=== PATIENT | female | born 1935 | race Two or more races ===

== ENCOUNTER 2020-01-03 12:28 | Inpatient (IN) | payer MEDICARE ==
--- NOTE | 2020-01-03 12:54 | ER Document Report ---
ED Medical Screen (RME) - General Chief Complaint: Neck Swelling Stated Complaint: ABSCESS Time Seen by Provider: 01/03/20 12:41 - HPI Notes: 01/03/20 12:49 84-year-old female without history of any medical complaints presents to the emergency room with right facial and right neck swelling mass for the last 2 days as well as having bilateral chest pain that started a day ago. Reports chest pain is episodic, only last for a few minutes and then goes away. Denies any traveling of pain to her arm shoulder back. Denies any dental pain dental complaints. Patient does not take any grcd-nkx-aktshjv medications, denies any medical history and does not have a primary care provider. In triage her heart rate was 138, afebrile. Denies any history of tachycardia. Does not drink alcohol, smoke, drink caffeine. Denies any thyroid disorders. Denies any numbness or tingling down arms or legs. Denies any shortness of breath, nausea, vomiting, diarrhea, abdominal pain. Denies any blurred vision, double vision, loss of vision. No trauma. Denies headaches I have greeted and performed a rapid initial assessment of this patient. A comprehensive ED assessment and evaluation of the patient, analysis of test results and completion of the medical decision making process will be conducted by additional ED providers. PHYSICAL EXAMINATION: GENERAL: Acutely ill, malnourished and in no acute distress. HEAD: Atraumatic, normocephalic. ENT: Slight trismus on the right. No gingival swelling or erythema on right EYES: Pupils equal round extraocular movements intact, conjunctiva are normal. NECK: Normal range of motion. Right mandible with swelling, tenderness to palpation, no erythema. right submandibular with moderate amount of swelling CV: tachycardia LUNGS: No respiratory distress - Related Data Allergies/Adverse Reactions: No Known Allergies Allergy (Verified 06/09/13 06:49) Past Medical History - Social History Chew tobacco use (# tins/day): No Frequency of alcohol use: None Drug Abuse: None Pulmonary Medical History: Denies: Hx Tuberculosis Neurological Medical History: Denies: Hx Seizures Endocrine Medical History: Comment Only: Hx Graves' Disease - unknown, Hx Hyperthyroidism - unknown, Hx Hypothyroidism - unknown Musculoskeltal Medical History: Comment Only Hx Systemic Lupus Erythematosus - unknown Psychiatric Medical History: Comment Only: Hx Bipolar Disorder - unknown, Hx Depression - unknown, Hx Post Traumatic Stress Disorder - unknown, Hx Schizophrenia - unknown Past Surgical History: Reports: Hx Bowel Surgery, Hx Hysterectomy. Denies: Hx Appendectomy, Hx Coronary Artery Bypass Graft, Hx Pacemaker, Hx Tonsillectomy - Immunizations Hx Diphtheria, Pertussis, Tetanus Vaccination: Yes Physical Exam - Vital signs Vitals: Temp Pulse Resp BP Pulse Ox 98.5 F 137 H 16 144/84 H 95 01/03/20 12:33 01/03/20 12:33 01/03/20 12:33 01/03/20 12:33 01/03/20 12:33 Course - Vital Signs Vital signs: Temp Pulse Resp BP Pulse Ox 97.8 F 137 H 16 144/84 H 95 01/03/20 12:44 01/03/20 12:33 01/03/20 12:33 01/03/20 12:33 01/03/20 12:33
[2020-01-03 13:18] LABS: HEMATOCRIT 41.3 % (36.0-47.0); HEMOGLOBIN 14.4 g/dL (12.0-15.5); MEAN CORPUSCULAR HEMOGLOBIN 32.6 pg (27.0-33.4); MEAN CORPUSCULAR HGB CONC 34.9 g/dL (32.0-36.0); MEAN CORPUSCULAR VOLUME 93 fl (80-97); RED BLOOD COUNT 4.43 10^6/uL (3.72-5.28); RED CELL DISTRIBUTION WIDTH 12.9 % (11.5-14.0)
[2020-01-03 13:40] LABS: ABSOLUTE LYMPHOCYTES# (MANUAL) 0.2 10^3/uL (0.5-4.7); ABSOLUTE MONOCYTES # (MANUAL) 0.5 10^3/uL (0.1-1.4); BAND NEUTROPHILS % (MANUAL) 8 % (3-5); BASOPHILS % (MANUAL) 0 % (0-2); EOSINOPHILS % (MANUAL) 0 % (0-6); LYMPHOCYTES % (MANUAL) 1 % (13-45); MONOCYTES % (MANUAL) 3 % (3-13); SEGMENTED NEUTROPHILS % (MAN) 88 % (42-78); TOTAL CELLS COUNTED 100
[2020-01-03 13:42] LABS: PLATELET CLUMPS PRESENT; PLATELET COMMENT DECREASED; RBC MORPHOLOGY COMMENT NORMO-CYTIC/CHROMIC
[2020-01-03 13:43] LABS: ALBUMIN 3.9 g/dL (3.5-5.0); ALKALINE PHOSPHATASE 135 U/L (38-126); ANION GAP 13 (5-19); ASPARTATE AMINO TRANSFERASE 28 U/L (14-36); BILIRUBIN,DIRECT 0.7 mg/dL (0.0-0.4); BILIRUBIN,TOTAL 1.8 mg/dL (0.2-1.3); BLOOD UREA NITROGEN 21 mg/dL (7-20); CARBON DIOXIDE 21 mmol/L (22-30); CHLORIDE 108 mmol/L (98-107); GLUCOSE 179 mg/dL (75-110); PLATELET COUNT 142 10^3/uL (150-450); POTASSIUM 4.7 mmol/L (3.6-5.0); TOTAL PROTEIN 6.9 g/dL (6.3-8.2)
[2020-01-03 14:29] LABS: C-REACTIVE PROTEIN 290.2 mg/L (<10.0)
--- NOTE | 2020-01-03 14:30 | ER Document Report ---
ED Medical Screen (RME) - General Chief Complaint: Neck Swelling Stated Complaint: ABSCESS Time Seen by Provider: 01/03/20 12:41 Mode of Arrival: Ambulatory Information source: Patient Notes: 01/03/20 12:45 - ED Nursing Note by RUBEN FINCH Num: [id number] : 1935 Patient Age: 84 patient states she has an abscess to the right side of her throat. patient states this started 2 days ago, denies fevers. patient states she has not taken anything for pain. patient states she has chest pain that started yesterday. patient noted to have a heart rate of 137 in triage. Initialized on 01/03/20 12:45 - END OF NOTE ED Medical Screen (Kimberly rich) - General Chief Complaint: Neck Swelling Stated Complaint: ABSCESS Time Seen by Provider: 01/03/20 12:41 - HPI Notes: 01/03/20 12:49 84-year-old female without history of any medical complaints presents to the emergency room with right facial and right neck swelling mass for the last 2 days as well as having bilateral chest pain that started a day ago. Reports chest pain is episodic, only last for a few minutes and then goes away. Denies any traveling of pain to her arm shoulder back. Denies any dental pain dental complaints. Patient does not take any ogfa-vzh-lacueex medications, denies any medical history and does not have a primary care provider. In triage her heart rate was 138, afebrile. Denies any history of tachycardia. Does not drink alcohol, smoke, drink caffeine. Denies any thyroid disorders. Denies any numbness or tingling down arms or legs. Denies any shortness of breath, nausea, vomiting, diarrhea, abdominal pain. Denies any blurred vision, double vision, loss of vision. No trauma. Denies headaches PHYSICAL EXAMINATION: GENERAL: Acutely ill, malnourished and in no acute distress. HEAD: Atraumatic, normocephalic. ENT: Slight trismus on the right. No gingival swelling or erythema on right EYES: Pupils equal round extraocular movements intact, conjunctiva are normal. NECK: Normal range of motion. Right mandible with swelling, tenderness to palpation, no erythema. right submandibular with moderate amount of swelling CV: tachycardia LUNGS: No respiratory distress My Notes 84-year-old [place] female who speaks little Vietnamese. 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 Her POA is her niece Ms. Sargent and she is in the room as spokesperson for her aunt. For the last several days patient has had poor appetite and pain on chewing on her right jaw with a mass forming to her right lateral face. She also has edema to her right lateral neck. Patient has been feeling chills and fever as well. She takes no medicines and she is usually very healthy. She denies any trauma and denies any other family members with similar symptoms. Patient reports her pain is 5 out of 10. Her pain is worse on palpation. She is never had any parotid gland problems in the past. TRAVEL OUTSIDE OF THE [place] IN LAST 30 DAYS: No - HPI Onset: Yesterday - Related Data Allergies/Adverse Reactions: No Known Allergies Allergy (Verified 06/09/13 06:49) Past Medical History - General Information source: Patient, Relative - Leann morley - Social History Cigarette use (# per day): No Chew tobacco use (# tins/day): No Frequency of alcohol use: None Drug Abuse: None Lives with: Family Family history: Reviewed & Not Pertinent Pulmonary Medical History: Denies: Hx Tuberculosis Neurological Medical History: Denies: Hx Seizures Endocrine Medical History: Comment Only: Hx Graves' Disease - unknown, Hx Hyperthyroidism - unknown, Hx Hypothyroidism - unknown Musculoskeltal Medical History: Comment Only Hx Systemic Lupus Erythematosus - unknown Psychiatric Medical History: Comment Only: Hx Bipolar Disorder - unknown, Hx Depression - unknown, Hx Post Traumatic Stress Disorder - unknown, Hx Schizophrenia - unknown Past Surgical History: Reports: Hx Bowel Surgery, Hx Hysterectomy. Denies: Hx Appendectomy, Hx Coronary Artery Bypass Graft, Hx Pacemaker, Hx Tonsillectomy - Immunizations Hx Diphtheria, Pertussis, Tetanus Vaccination: Yes Review of Systems - Review of Systems Constitutional: See HPI, Fever, Malaise, Weakness, Recent illness EENT: See HPI, Throat pain, Mouth pain, Other - Right facial swelling Cardiovascular: See HPI, Dizziness Respiratory: No symptoms reported Gastrointestinal: No symptoms reported Genitourinary: No symptoms reported Female Genitourinary: No symptoms reported Musculoskeletal: No symptoms reported Skin: No symptoms reported Hematologic/Lymphatic: No symptoms reported Neurological/Psychological: No symptoms reported Physical Exam - Vital signs Vitals: Temp Pulse Resp BP Pulse Ox 98.5 F 137 H 16 144/84 H 95 09/08/20 12:33 01/03/20 12:33 01/03/20 12:33 01/03/20 12:33 01/03/20 12:33 Interpretation: Tachycardic, Tachypneic - HEENT Head: Normocephalic, Atraumatic, Other - Right angle of jaw and right parotid gland area edematous and firm to palpation with erythema to right facial skin and tenderness on palpation with extension to right lateral neck. Eyes: Normal Pupils: PERRL Pharynx: Other - Obvious edema to right mucosa along dental ridge. She is missing several molars on the right lower jaw. No obvious signs or symptoms of dental caries. Neck: Lymphadenopathy - Respiratory Respiratory status: Tachypnea Chest status: Nontender Breath sounds: Normal Chest palpation: Normal - Cardiovascular Rhythm: Tachycardia Heart sounds: Normal auscultation Murmur: No - Abdominal Inspection: Normal Distension: No distension Bowel sounds: Normal Tenderness: Nontender Organomegaly: No organomegaly - Rectal Hemorrhoids: Other - deferred - Genitourinary Bimanuel exam: Other - deferred - Back Back: Normal - Extremities General upper extremity: Normal inspection General lower extremity: Normal inspection - Neurological Neuro grossly intact: Yes Cognition: Normal Orientation: AAOx4 [place] Coma Scale Eye Opening: Spontaneous Irene Coma Scale Verbal: Oriented [place] Coma Scale Motor: Obeys Commands [place] Coma Scale Total: 15 Speech: Normal Motor strength normal: LUE, RUE, LLE, RLE Sensory: Normal - Psychological Associated symptoms: Normal affect - Skin Skin Temperature: Hot Skin Color: Erythema Course - Vital Signs Vital signs: Temp Pulse Resp BP Pulse Ox 97.8 F 137 H 30 H 142/68 H 96 01/03/20 12:44 01/03/20 12:33 01/03/20 14:01 01/03/20 14:00 01/03/20 14:01 - Laboratory Result Diagrams: 01/03/20 13:01 01/03/20 13:01 Laboratory results interpreted by me: 01/03/20 01/03/20 01/03/20 13:01 13:01 13:01 WBC 15.0 H Plt Count 142 L Seg Neuts % (Manual) 88 H Band Neutrophils % 8 H Lymphocytes % (Manual) 1 L Abs Neuts (Manual) 14.4 H Abs Lymphs (Manual) 0.2 L Chloride 108 H Carbon Dioxide 21 L BUN 21 H Glucose 179 H Lactic Acid 2.7 H Total Bilirubin 1.8 H Direct Bilirubin 0.7 H Alkaline Phosphatase 135 H C-Reactive Protein 290.2 H TSH 01/03/20 13:01 WBC Plt Count Seg Neuts % (Manual) Band Neutrophils % Lymphocytes % (Manual) Abs Neuts (Manual) Abs Lymphs (Manual) Chloride Carbon Dioxide BUN Glucose Lactic Acid Total Bilirubin Direct Bilirubin Alkaline Phosphatase C-Reactive Protein TSH 0.03 L - Diagnostic Test Radiology reviewed: Reports reviewed - EKG Interpretation by Me EKG shows normal: Sinus rhythm - Patient with sinus tachycardia [address] elevation no ST depression and no T wave elevation or T wave depression with axis left deviation Rate: Tachycardia Rhythm: NSR Critical Care Note - Critical Care Note Comments: I spoke with Dr. Rikki Mallory at 1628. I then called hospitalist because he advised he will evaluate this patient but did advise n.p.o. steroids and continued antibiotics. I spoke with Melinda at [id number] at [address] Quijano to be the admitting doctor. I called her a few minutes later and she demetrius l call us back. I discussed this case with Dr. Quijano at 1640 and she advised he will see the patient. Doctor's Discharge - Discharge Clinical Impression: Peritonsillar abscess, Weakness, right facial cellulitis Condition: Good Disposition: ADMITTED INPATIENT
[2020-01-03] MEDS ORDERED: CEFTRIAXONE INJ 1000 MG VIAL IV ONE (14:45)
[2020-01-03] MEDS ORDERED: MEROPENEM 1 GM VIAL IV ONE (14:47)
[2020-01-03] MEDS ORDERED: DEXAMETHASONE SOD PHOS INJ 10 MG/1 ML VIAL IV ONE (14:47)
[2020-01-03] MEDS ORDERED: KETOROLAC TROMETHAMINE INJ/PF 30 MG/1 ML SDV IV ONE (14:48)
[2020-01-03] MEDS ORDERED: LEVOFLOXACIN 750 MG/D5W RTU 750 MG/150 ML RTUPB IV ONE (14:48)
--- NOTE | 2020-01-03 14:49 | RADIOLOGY REPORT (SQ) ---
EXAM DESCRIPTION: CT SOFT TISSUE NECK WITH IMAGES COMPLETED DATE/TIME: 01/03/2020 2:15 pm REASON FOR STUDY: right facial and neck swelling x2d. COMPARISON: None. TECHNIQUE: Post IV contrasted scanning from skull base through lung apices with review of bone, soft tissue and lung windows. Reconstructed coronal and sagittal MPR images reviewed. All images stored on PACS. All CT scanners at this facility use dose modulation, iterative reconstruction, and/or weight based d osing when appropriate to reduce radiation dose to as low as reasonably achievable (ALARA). [facility]: Dose Right [facility]: CareDose [facility]: Dose Right [facility]: Teradose 4D [facility]: M[employer] CONTRAST TYPE AND DOSE: contrast/concentration: Isovue 350.00 mmol/ml; Total Contrast Delivered: 75. 0 ml; Total Saline Delivered: 37.2 ml RENAL FUNCTION: GFR > 60. RADIATION DOSE: CT Rad equipment meets quality standard of care and radiation dose reduction techniq ues were employed. CTDIvol: 7.1 mGy. DLP: 226 mGy-cm. . LIMITATIONS: None. FINDINGS: SKULL BASE: Intact. MAJOR SALIVARY GLANDS: Left parotid is atrophic. LYMPHADENOPATHY: No adenopathy. MUCOSAL MASSES OR ASYMMETRY: Inflammatory changes in the right tonsillar crypt. Approximately 1 cm f ocus of low attenuation consistent with necrosis or abscess. LARYNX/CORDS: No abnormal findings. VASCULAR STRUCTURES: The major vessels are patent. LUNG APICES: Clear. BONES: Intact. THYROID: Normal size. No masses. PARANASAL SINUSES: Clear. OTHER: No other significant finding. IMPRESSION: Right peritonsillar abscess or necrotic mass. ENT consultation is recommended. TECHNICAL DOCUMENTATION: JOB ID: [id number] Quality ID # [id number]: Final reports with documentation of one or more dose reduction techniques (e.g., Au tomated exposure control, adjustment of the mA and/or kV according to patient size, use of iterative reconstruction technique) 2010 [employer]- All Rights Reserved Reading location - IP/workstation name: [email or web address]
--- NOTE | 2020-01-03 14:51 | RADIOLOGY REPORT (SQ) ---
EXAM DESCRIPTION: CHEST 2 VIEWS IMAGES COMPLETED DATE/TIME: 01/03/2020 2:21 pm REASON FOR STUDY: right facial and neck swelling x2d. COMPARISON: None. EXAM PARAMETERS: NUMBER OF VIEWS: two views TECHNIQUE: Digital Frontal and Lateral radiographic views of the chest acquired. RADIATION DOSE: NA LIMITATIONS: none FINDINGS: LUNGS AND PLEURA: Hyperexpansion of the lungs. No acute infiltrate, effusion, or mass. MEDIASTINUM AND HILAR STRUCTURES: No masses or contour abnormalities. HEART AND VASCULAR STRUCTURES: Heart normal size. No evidence for failure. BONES: No acute findings. HARDWARE: None in the chest. OTHER: No other significant finding. IMPRESSION: Chronic lung changes with no acute cardiopulmonary findings. TECHNICAL DOCUMENTATION: JOB ID: [id number] 2010 [employer]- All Rights Reserved Reading location - IP/workstation name: [email or web address]
[2020-01-03] MEDS ORDERED: MORPHINE SULFATE 10 MG/ML INJ IV PRN (17:33)
[2020-01-03] MEDS ORDERED: NORMAL SALINE 1000 ML 1,000 ML IV ONE ×2 (17:33→17:41)
[2020-01-03] MEDS ORDERED: AMPICILLIN SOD/SULBACTAM 3 GM VIAL IV SCH (17:45)
--- NOTE | 2020-01-03 18:00 | PDOC H&P ---
History of Present Illness Admission Date/PCP: 01/03/2020 Patient complains of: R jaw pain History of Present Illness: AMRITA JUAREZ is an 84 year old female with no pertinent past medical history who presents from home with 2-day history of right jaw pain/swelling and difficulty swallowing. States that she has not been able to eat or drink anything for the last 2 days. She has never had anything like this before. She denies fevers / chills / rigors. She is an otherwise healthy woman who, prior to 2 days ago, was in her usual state of health. She does not take any medications and she avoid seeing doctors. She denies trauma to the area or recent dental procedures. Past Medical History Cardiac Medical History: Reports: None Pulmonary Medical History: Reports: None Denies: Tuberculosis EENT Medical History: Reports: None Neurological Medical History: Reports: None Denies: Seizures Endocrine Medical History: Reports: None Renal/ Medical History: Reports: None Malignancy Medical History: Reports: None GI Medical History: Reports: Other - SBO Psychiatric Medical History: Reports: None Traumatic Medical History: Reports: None Hematology: Reports: None Infectious Medical History: Reports: None Past Surgical History Past Surgical History: Reports: Hysterectomy, Other - "intestinal surgery" to correct SBO (?) Denies: Appendectomy, Coronary Artery Bypass Graft, Pacemaker, Tonsillectomy Social History Information Source: Patient, Relative Lives with: Family Smoking Status: Never Smoker Electronic Cigarette use?: No Frequency of Alcohol Use: None Hx Recreational Drug Use: No Hx Prescription Drug Abuse: No - Advance Directive Resuscitation Status: Do Not Resuscitate Surrogate healthcare decision maker:: Mary Bustillo Family History Family History: Reviewed & Not Pertinent Parental Family History Reviewed: Yes Children Family History Reviewed: Yes Sibling(s) Family History Reviewed.: Yes Medication/Allergy Home Medications: No Home Medications 03/29/13 Allergies/Adverse Reactions: No Known Allergies Allergy (Verified 01/03/20 17:14) Review of Systems Constitutional: PRESENT: as per HPI. ABSENT: fever(s) Nose, Mouth, and Throat: PRESENT: mouth pain Cardiovascular: ABSENT: chest pain, dyspnea on exertion, edema, orthropnea, palpitations Respiratory: ABSENT: cough, hemoptysis Gastrointestinal: ABSENT: abdominal pain, constipation, diarrhea, hematemesis, hematochezia, nausea, vomiting Integumentary: ABSENT: rash, wounds Neurological: ABSENT: abnormal gait, abnormal speech, confusion, dizziness, focal weakness, syncope Endocrine: ABSENT: cold intolerance, heat intolerance, polydipsia, polyuria Physical Exam Vital Signs: Temp Pulse Resp BP Pulse Ox 97.8 F 137 H 30 H 142/68 H 96 01/03/20 12:44 01/03/20 12:33 01/03/20 14:01 01/03/20 14:00 01/03/20 14:01 Intake & Output 01/02/20 01/03/20 01/04/20 06:59 06:59 06:59 Intake Total 200 Balance 200 Weight 36.3 kg General appearance: PRESENT: no acute distress Head exam: PRESENT: atraumatic, normocephalic Eye exam: ABSENT: conjunctival injection, scleral icterus Mouth exam: PRESENT: dry mucosa Throat exam: ABSENT: post pharyngeal erythema Neck exam: PRESENT: other - R cheek/jaw/neck swelling. ABSENT: JVD, thyromegaly Respiratory exam: PRESENT: clear to auscultation cristian, unlabored. ABSENT: acce ssory muscle use Cardiovascular exam: PRESENT: tachycardia. ABSENT: irregular rhythm GI/Abdominal exam: PRESENT: normal bowel sounds, soft. ABSENT: tenderness Extremities exam: ABSENT: pedal edema Musculoskeletal exam: PRESENT: normal inspection Neurological exam: PRESENT: alert, awake, oriented to person, oriented to place, oriented to time, oriented to situation Psychiatric exam: PRESENT: appropriate affect Results Laboratory Results: 01/03/20 13:01 01/03/20 13:01 01/03/20 01/03/20 01/03/20 13:01 13:01 13:01 WBC 15.0 H RBC 4.43 Hgb 14.4 Hct 41.3 MCV 93 MCH 32.6 MCHC 34.9 RDW 12.9 Plt Count 142 L Seg Neutrophils % Not Reportable Sodium 142.0 Potassium 4.7 Chloride 108 H Carbon Dioxide 21 L Anion Gap 13 BUN 21 H Creatinine 0.60 Est GFR ( Amer) > 60 Glucose 179 H Lactic Acid 2.7 H Calcium 10.0 Magnesium 2.2 Total Bilirubin 1.8 H AST 28 Alkaline Phosphatase 135 H C-Reactive Protein 290.2 H Total Protein 6.9 Albumin 3.9 TSH 01/03/20 13:01 WBC RBC Hgb Hct MCV MCH MCHC RDW Plt Count Seg Neutrophils % Sodium Potassium Chloride Carbon Dioxide Anion Gap BUN Creatinine Est GFR ( Amer) Glucose Lactic Acid Calcium Magnesium Total Bilirubin AST Alkaline Phosphatase C-Reactive Protein Total Protein Albumin TSH 0.03 L 01/03/20 13:01 Troponin I < 0.012 Impressions: Chest X-Ray 01/03/20 12:41 IMPRESSION: Chronic lung changes with no acute cardiopulmonary findings. Soft Tissue Neck CT 01/03/20 12:41 IMPRESSION: Right peritonsillar abscess or necrotic mass. ENT consultation is recommended. Assessment and Plan - Diagnosis (1) Sepsis Qualifiers: Sepsis type: sepsis due to unspecified organism Severe sepsis shock status: without septic shock Is this a current diagnosis for this admission?: Yes (2) Dehydration Is this a current diagnosis for this admission?: Yes (3) Sinus tachycardia by electrocardiogram Is this a current diagnosis for this admission?: Yes (4) Neutrophilic leukocytosis Is this a current diagnosis for this admission?: Yes (5) Peritonsillar abscess Is this a current diagnosis for this admission?: Yes (6) Weakness Is this a current diagnosis for this admission?: Yes (7) Hyperthyroidism Is this a current diagnosis for this admission?: Yes - Plan Summary Summary: AMRITA JUAREZ is an 84 year old female with no pertinent past medical history who presents from home with 2-day history of right jaw pain/swelling and difficulty swallowing. States that she has not been able to eat or drink anything for the last 2 days. She has never had anything like this before. She denies fevers / chills / rigors. She is an otherwise healthy woman who, prior to 2 days ago, was in her usual state of health. She does not take any medications and she avoid seeing doctors. She denies trauma to the area or recent dental procedures. Sepsis due to Peritonsillar Abscess: In the ED, she had elevated RR, HR and was found to have a neutrophilic leukocytosis (3/[address] neck was concerning for peritonsillar abscess versus necrotic mass. She has no evidence of airway compromise. ENT has been consulted, and will see her tomorrow. In the meantime, ENT has recommended to start IV steroids and IV antibiotics, and observe overnight. - 2 BCx - start Unasyn/Clinda IV - start Decadron 8 mg IV Q8H x4 doses - pain control with Toradol/Morphine PRN - aspiration precautions Lactic Acidosis and Sinus Tachycardia - due to Dehydration: in the setting of poor oral intake and above infection - bolus 2 L NS and then start continuous IVF at 150 ml/hr - telemetry Hyperthyroidism: TSH low 0.03 - add on fT4 and T3 - consider starting beta armando tomorrow when she is no longer dehydrated (hyperthyroidism can be contributing to tachycardia) DVT ppx: Lovenox Code Status: DNR/DNI - Time Time Spent with patient: 25-34 minutes Anticipated Discharge Disposition: Home, Self Care Anticipated Discharge Timeframe: within 72 hours
[2020-01-03] MEDS: DEXAMETHASONE SOD PHOSPHATE INJ 4 MG/1 ML VIAL IV SCH (19:16)
[2020-01-03 19:49] LABS: ANION GAP 11 (5-19); BLOOD UREA NITROGEN 17 mg/dL (7-20); CALCIUM 8.9 mg/dL (8.4-10.2); CARBON DIOXIDE 22 mmol/L (22-30); CHLORIDE 110 mmol/L (98-107); GLUCOSE 183 mg/dL (75-110)
[2020-01-03] MEDS: NORMAL SALINE 1000 ML 1,000 ML IV PRN (20:00)
[2020-01-03 20:05] LABS: FREE T3 1.63 pg/mL (2.77-5.27); FREE T4 (FREE THYROXINE) 1.8 ng/dL (0.78-2.19)
[2020-01-03 20:25] LABS: POTASSIUM 3.7 mmol/L (3.6-5.0)
[2020-01-03] MEDS: KETOROLAC TROMETHAMINE INJ/PF 30 MG/1 ML SDV IV PRN (20:46)
[2020-01-03] MEDS: CLINDAMYCIN 600 MG/D5W RTU 600 MG/50 ML RTUPB IV SCH (21:29)
[2020-01-03] MEDS: AMPICILLIN SODIUM/SULBACTAM NA 3 GM in NORMAL SALINE 100 ML IV SCH (23:00)
[2020-01-04] MEDS: NORMAL SALINE 1000 ML 1,000 ML IV PRN ×2 (02:47→11:15)
[2020-01-04] MEDS: DEXAMETHASONE SOD PHOSPHATE INJ 4 MG/1 ML VIAL IV SCH ×3 (02:47→17:29)
[2020-01-04] MEDS: KETOROLAC TROMETHAMINE INJ/PF 30 MG/1 ML SDV IV PRN (04:24)
[2020-01-04 05:19] LABS: HEMOGLOBIN 12.8 g/dL (12.0-15.5); MEAN CORPUSCULAR HEMOGLOBIN 32.3 pg (27.0-33.4); MEAN CORPUSCULAR HGB CONC 34.5 g/dL (32.0-36.0); MEAN CORPUSCULAR VOLUME 94 fl (80-97); PLATELET COUNT 104 10^3/uL (150-450); RED BLOOD COUNT 3.96 10^6/uL (3.72-5.28); RED CELL DISTRIBUTION WIDTH 12.7 % (11.5-14.0); WHITE BLOOD COUNT 12.5 10^3/uL (4.0-10.5)
[2020-01-04] MEDS: AMPICILLIN SODIUM/SULBACTAM NA 3 GM in NORMAL SALINE 100 ML IV SCH ×4 (05:37→23:12)
[2020-01-04] MEDS: CLINDAMYCIN 600 MG/D5W RTU 600 MG/50 ML RTUPB IV SCH ×3 (06:41→21:05)
--- NOTE | 2020-01-04 09:39 | EKG REPORT ---
SEVERITY:- ABNORMAL ECG - SINUS TACHYCARDIA PROBABLE LEFT ATRIAL ABNORMALITY LEFT AXIS DEVIATION BORDERLINE T ABNORMALITIES, ANT-LAT LEADS : Confirmed by: Francisco Marquez MD 04-Jan-2020 09:38:25
[2020-01-04] MEDS: ENOXAPARIN SODIUM INJ 40 MG/0.4 ML DISP.SYRIN SUBCUT SCH (11:13)
--- NOTE | 2020-01-04 12:53 | PDOC CONSULTATION ---
Consultation Consult Date: 01/04/20 Provider Consulted: CAMDEN FREIRE Consult reason:: Head and neck infection History of Present Illness Admission Date/PCP: 01/03/20 18:12 History of Present Illness: Otolaryngology head neck surgery was asked to evaluate Ms. Morgan with regards to a right-sided head neck infection. Was evaluated in the emergency department where CT scan of the neck was performed. The CT scan was reviewed by myself in revealed a right parapharyngeal space phlegmon. There was a question for a peritonsillar abscess. The patient states that symptoms started several days ago and then she noticed neck swelling. The nursing staff says that the neck swelling has decreased from the previous day. The patient states that she feels much better than she did yesterday. She states she is swallowing better and states the swelling has also decreased. Past Medical History Cardiac Medical History: Reports: None Pulmonary Medical History: Reports: None Denies: Tuberculosis EENT Medical History: Reports: None Neurological Medical History: Reports: None Denies: Seizures Endocrine Medical History: Reports: None Renal/ Medical History: Reports: None Malignancy Medical History: Reports: None GI Medical History: Reports: Other - SBO Psychiatric Medical History: Reports: None Denies: Depression Traumatic Medical History: Reports: None Hematology: Reports: None Infectious Medical History: Reports: None Past Surgical History Past Surgical History: Reports: Hysterectomy, Other - "intestinal surgery" to correct SBO (?) Denies: Appendectomy, Coronary Artery Bypass Graft, Pacemaker, Tonsillectomy Social History Lives with: Family Smoking Status: Never Smoker Electronic Cigarette use?: No Frequency of Alcohol Use: None Hx Recreational Drug Use: No Drugs: None Hx Prescription Drug Abuse: No - Advance Directive Resuscitation Status: Do Not Resuscitate Family History Family History: Reviewed & Not Pertinent Parental Family History Reviewed: No Children Family History Reviewed: No Sibling(s) Family History Reviewed.: No Medication/Allergy Home Medications: No Home Medications 03/29/13 Allergies/Adverse Reactions: No Known Allergies Allergy (Verified 01/03/20 17:14) Review of Systems Constitutional: ABSENT: chills, fever(s), headache(s), weight gain, weight loss Eyes: ABSENT: visual disturbances Ears: ABSENT: hearing changes Cardiovascular: ABSENT: chest pain, dyspnea on exertion, edema, orthropnea, palpitations Respiratory: ABSENT: cough, hemoptysis Physical Exam Vital Signs: Temp Pulse Resp BP Pulse Ox 97.8 F 90 18 155/74 H 98 01/04/20 00:15 01/04/20 07:00 01/04/20 00:15 01/04/20 00:15 01/04/20 00:15 Intake & Output 01/03/20 01/04/20 01/05/20 06:59 06:59 06:59 Intake Total 3630 1150 Output Total 1 Balance 3629 1150 Weight 39.4 kg General appearance: PRESENT: no acute distress Exam: General: Patient upright in bed and in no apparent distress. Oral cavity/oropharyngeal exam: Peritonsillar areas are flat. No evidence of a peritonsillar abscess. There is edema and erythema in the right gingivobuccal sulcus and onto the mandibular alveolus. The right mandibular molar appears to have caries. This may be the source of the infection. Face: Edema/swelling along the lateral border of the mandible on the right. Neck: There is some mild erythema/edema involving the lateral neck. Most of the edema is over the lateral border of the right mandible. CT scan of the neck: The CT scan was personally reviewed by myself. CT scan demonstrates a phlegmon in the right parapharyngeal space. No overt abscess noted. Respiratory exam: PRESENT: clear to auscultation cristian. ABSENT: rales, rhonchi, wheezes Cardiovascular exam: PRESENT: RRR. ABSENT: diastolic murmur, rubs, systolic murmur Pulses: PRESENT: normal dorsalis pedis pul Results Laboratory Results: 01/04/20 04:28 01/03/20 19:11 01/03/20 01/03/20 01/03/20 13:01 13:01 13:01 WBC 15.0 H RBC 4.43 Hgb 14.4 Hct 41.3 MCV 93 MCH 32.6 MCHC 34.9 RDW 12.9 Plt Count 142 L Seg Neutrophils % Not Reportable Sodium 142.0 Potassium 4.7 Chloride 108 H Carbon Dioxide 21 L Anion Gap 13 BUN 21 H Creatinine 0.60 Est GFR ( Amer) > 60 Glucose 179 H Lactic Acid 2.7 H Calcium 10.0 Magnesium 2.2 Total Bilirubin 1.8 H AST 28 Alkaline Phosphatase 135 H C-Reactive Protein 290.2 H Total Protein 6.9 Albumin 3.9 TSH Free T4 Free T3 pg/mL 01/03/20 01/03/20 01/03/20 13:01 19:11 19:11 WBC RBC Hgb Hct MCV MCH MCHC RDW Plt Count Seg Neutrophils % Sodium 143.0 Potassium 3.7 D Chloride 110 H Carbon Dioxide 22 Anion Gap 11 BUN 17 Creatinine 0.49 L Est GFR ( Amer) > 60 Glucose 183 H Lactic Acid Calcium 8.9 Magnesium Total Bilirubin AST Alkaline Phosphatase C-Reactive Protein Total Protein Albumin TSH 0.03 L Free T4 1.80 Free T3 pg/mL 1.63 L 01/04/20 01/04/20 04:28 04:28 WBC 12.5 H RBC 3.96 Hgb 12.8 Hct 37.0 MCV 94 MCH 32.3 MCHC 34.5 RDW 12.7 Plt Count 104 L Seg Neutrophils % Sodium Potassium Chloride Carbon Dioxide Anion Gap BUN Creatinine Est GFR ( Amer) Glucose Lactic Acid Calcium Magnesium 1.9 Total Bilirubin AST Alkaline Phosphatase C-Reactive Protein Total Protein Albumin TSH Free T4 Free T3 pg/mL 01/03/20 13:01 Troponin I < 0.012 Impressions: Chest X-Ray 01/03/20 12:41 IMPRESSION: Chronic lung changes with no acute cardiopulmonary findings. Soft Tissue Neck CT 01/03/20 12:41 IMPRESSION: Right peritonsillar abscess or necrotic mass. ENT consultation is recommended. Assessment & Plan - Diagnosis (1) Odontogenic infection of jaw Is this a current diagnosis for this admission?: Yes Plan: 1. The diagnosis and treatment plan were discussed with the patient, nursing staff and hospitalist, who voiced understanding. 2. This appears to be an odontogenic infection arising from the mandibular molar on the right. Physical exam is consistent with this diagnosis. 3. Recommend evaluation by an oral/maxillofacial surgeon for further treatment. 4. Recommend continuation with IV antibiotics for at least 72 hours and then reassess.
--- NOTE | 2020-01-04 15:24 | PDOC PROGRESS REPORT ---
Subjective Progress Note for:: 01/04/20 Subjective:: She feels better today. She is able to finally swallow food/drinks. Swelling has decreased. Reason For Visit: PERITONSILLAR ABSCESS,WEAKNESS,RIGHT FACIAL Physical Exam Vital Signs: Temp Pulse Resp BP Pulse Ox 97.5 F 78 28 H 155/65 H 99 01/04/20 11:32 01/04/20 11:32 01/04/20 11:32 01/04/20 11:32 01/04/20 11:32 Intake & Output 01/03/20 01/04/20 01/05/20 06:59 06:59 06:59 Intake Total 3630 1150 Output Total 1 Balance 3629 1150 Weight 39.4 kg Additional comments: General appearance: PRESENT: no acute distress Head exam: PRESENT: atraumatic, normocephalic Eye exam: ABSENT: conjunctival injection, scleral icterus Mouth exam: PRESENT: moist mucosa Throat exam: ABSENT: post pharyngeal erythema Neck exam: PRESENT: other - R cheek/jaw/neck swelling and redness (somewhat improved). ABSENT: JVD, thyromegaly Respiratory exam: PRESENT: clear to auscultation cristian, unlabored. ABSENT: accessory muscle use Cardiovascular exam: PRESENT: tachycardia. ABSENT: irregular rhythm GI/Abdominal exam: PRESENT: normal bowel sounds, soft. ABSENT: tenderness Extremities exam: ABSENT: pedal edema Musculoskeletal exam: PRESENT: normal inspection Neurological exam: PRESENT: alert, awake, oriented to person, oriented to place, oriented to time, oriented to situation Psychiatric exam: PRESENT: appropriate affect Results Laboratory Results: 01/04/20 04:28 01/03/20 19:11 01/03/20 01/03/20 01/04/20 19:11 19:11 04:28 WBC 12.5 H RBC 3.96 Hgb 12.8 Hct 37.0 MCV 94 MCH 32.3 MCHC 34.5 RDW 12.7 Plt Count 104 L Sodium 143.0 Potassium 3.7 D Chloride 110 H Carbon Dioxide 22 Anion Gap 11 BUN 17 Creatinine 0.49 L Est GFR ( Amer) > 60 Glucose 183 H Calcium 8.9 Magnesium Free T4 1.80 Free T3 pg/mL 1.63 L 01/04/20 04:28 WBC RBC Hgb Hct MCV MCH MCHC RDW Plt Count Sodium Potassium Chloride Carbon Dioxide Anion Gap BUN Creatinine Est GFR ( Amer) Glucose Calcium Magnesium 1.9 Free T4 Free T3 pg/mL 01/03/20 13:01 Troponin I < 0.012 Impressions: Chest X-Ray 01/03/20 12:41 IMPRESSION: Chronic lung changes with no acute cardiopulmonary findings. Soft Tissue Neck CT 01/03/20 12:41 IMPRESSION: Right peritonsillar abscess or necrotic mass. ENT consultation is recommended. Assessment and Plan - Diagnosis (1) Sepsis Qualifiers: Sepsis type: sepsis due to unspecified organism Severe sepsis shock status: without septic shock Is this a current diagnosis for this admission?: Yes (2) Dehydration Is this a current diagnosis for this admission?: Yes (3) Sinus tachycardia by electrocardiogram Is this a current diagnosis for this admission?: Yes (4) Neutrophilic leukocytosis Is this a current diagnosis for this admission?: Yes (5) Peritonsillar abscess Is this a current diagnosis for this admission?: Yes (6) Weakness Is this a current diagnosis for this admission?: Yes (7) Hyperthyroidism Is this a current diagnosis for this admission?: Yes - Plan Summary Summary: AMRITA JUAREZ is an 84 year old female with no pertinent past medical history who presents from home with 2-day history of right jaw pain/swelling and difficulty swallowing. States that she has not been able to eat or drink anything for the last 2 days. She has never had anything like this before. She denies fevers / chills / rigors. She is an otherwise healthy woman who, prior to 2 days ago, was in her usual state of health. She does not take any medications and she avoids seeing doctors. She denies trauma to the area or recent dental procedures. Sepsis due to Peritonsillar Abscess: In the ED, she had elevated RR, HR and was found to have a neutrophilic leukocytosis (3/[address] neck was concerning for peritonsillar abscess versus necrotic mass. She has no evidence of airway compromise. ENT has been consulted, and feels that this is due to an odontogenic infection arising from the mandibular molar on the right, and that she needs continued IV antibiotics for at least 72 hours and an oral surgery evaluation. - ENT consulted - Oral Surgery (Dr. Hanson) contacted today for phone consultation, although unfortunately he is not actually qa automation architect until next week - continue Unasyn/Clinda IV - completed Decadron 8 mg IV Q8H x4 doses - pain control with Toradol/Morphine PRN - aspiration precautions Lactic Acidosis and Sinus Tachycardia - due to Dehydration: in the setting of poor oral intake and above infection. Resolved with IVF hydration. - DC telemetry Low TSH: TSH low at 0.03, but free T4 is normal and T3 is actually decreased. This is consistent with illness-induced thyroid lab abnormalities (non-thyroidal illness) and NOT hyperthyroidism, as previously thought. - repeat TSH in 4-6 weeks as outpatient after resolution of acute illness - she does NOT need treatment for hyperthyroidism DVT ppx: Lovenox Code Status: DNR/DNI - Time Time Spent with patient: 35 or more minutes Anticipated Discharge Disposition: Home, Self Care Anticipated Discharge Timeframe: within 72 hours
[2020-01-04 19:13] LABS: ANION GAP 10 (5-19); BLOOD UREA NITROGEN 20 mg/dL (7-20); CALCIUM 8.6 mg/dL (8.4-10.2); CARBON DIOXIDE 21 mmol/L (22-30); CHLORIDE 109 mmol/L (98-107); GLUCOSE 200 mg/dL (75-110)
[2020-01-04] MEDS ORDERED: POTASSIUM CHLORIDE 10 MEQ TABLET.ER PO ONE (21:30)
[2020-01-05] MEDS: NORMAL SALINE 1000 ML 1,000 ML IV PRN (01:46)
[2020-01-05] MEDS: AMPICILLIN SODIUM/SULBACTAM NA 3 GM in NORMAL SALINE 100 ML IV SCH ×3 (05:10→19:58)
[2020-01-05 06:07] LABS: HEMATOCRIT 38.5 % (36.0-47.0); HEMOGLOBIN 13.2 g/dL (12.0-15.5); MEAN CORPUSCULAR HEMOGLOBIN 31.8 pg (27.0-33.4); MEAN CORPUSCULAR HGB CONC 34.4 g/dL (32.0-36.0); MEAN CORPUSCULAR VOLUME 93 fl (80-97); PLATELET COUNT 117 10^3/uL (150-450); RED BLOOD COUNT 4.16 10^6/uL (3.72-5.28); RED CELL DISTRIBUTION WIDTH 12.8 % (11.5-14.0); WHITE BLOOD COUNT 14.3 10^3/uL (4.0-10.5)
[2020-01-05] MEDS: CLINDAMYCIN 600 MG/D5W RTU 600 MG/50 ML RTUPB IV SCH ×2 (06:09→13:34)
[2020-01-05 08:40] LABS: ANION GAP 9 (5-19); BLOOD UREA NITROGEN 17 mg/dL (7-20); CALCIUM 8.4 mg/dL (8.4-10.2); CARBON DIOXIDE 22 mmol/L (22-30); CHLORIDE 111 mmol/L (98-107); GLUCOSE 157 mg/dL (75-110); POTASSIUM 3.2 mmol/L (3.6-5.0)
[2020-01-05] MEDS ORDERED: ACETAMINOPHEN 325 MG TABLET PO PRN (08:49)
[2020-01-05] MEDS: ENOXAPARIN SODIUM INJ 40 MG/0.4 ML DISP.SYRIN SUBCUT SCH (09:17)
[2020-01-05] MEDS: POTASSIUM CHLORIDE 10 MEQ TABLET.ER PO SCH ×3 (09:19→18:33)
--- NOTE | 2020-01-05 10:53 | PDOC CONSULTATION ---
Consultation Consult Date: 01/05/20 Attending physician:: IVANIA VANCE Provider Consulted: RYAN COLES Consult reason:: facial abscess History of Present Illness Admission Date/PCP: 01/03/20 18:12 Patient complains of: swelling right side of face and neck. She states that she has not had any teeth that were painful. History of Present Illness: AMRITA JUAREZ is a 84 year old female Past Medical History Cardiac Medical History: Reports: None Pulmonary Medical History: Reports: None Denies: Tuberculosis EENT Medical History: Reports: None Neurological Medical History: Reports: None Denies: Seizures Endocrine Medical History: Reports: None Renal/ Medical History: Reports: None Malignancy Medical History: Reports: None GI Medical History: Reports: Other - SBO Psychiatric Medical History: Reports: None Denies: Depression Traumatic Medical History: Reports: None Hematology: Reports: None Infectious Medical History: Reports: None Past Surgical History Past Surgical History: Reports: Hysterectomy, Other - "intestinal surgery" to correct SBO (?) Denies: Appendectomy, Coronary Artery Bypass Graft, Pacemaker, Tonsillectomy Social History Lives with: Family Smoking Status: Never Smoker Electronic Cigarette use?: No Frequency of Alcohol Use: None Hx Recreational Drug Use: No Drugs: None Hx Prescription Drug Abuse: No - Advance Directive Resuscitation Status: Do Not Resuscitate Family History Family History: Reviewed & Not Pertinent Parental Family History Reviewed: No Children Family History Reviewed: NA Sibling(s) Family History Reviewed.: NA Medication/Allergy Home Medications: No Home Medications 03/29/13 Allergies/Adverse Reactions: No Known Allergies Allergy (Verified 01/03/20 17:14) Physical Exam Vital Signs: Temp Pulse Resp BP Pulse Ox 97.3 F 84 16 143/66 H 97 01/05/20 07:45 01/05/20 07:45 01/05/20 07:45 01/05/20 07:45 01/05/20 07:45 Intake & Output 01/04/20 01/05/20 01/06/20 06:59 06:59 06:59 Intake Total 3630 3370 50 Output Total 1 Balance 3629 3370 50 Weight 39.4 kg 39.1 kg Mouth exam: PRESENT: other - There is a firm swelling of the right buccal vestibule. There is no obvious floor of mouth swelling however it is tender to palpation. Teeth exam: PRESENT: other - There are no grossly carious teeth on bedside exam Neck exam: PRESENT: other - Firm doughy swelling of the right submandibular area that is tender to palpation. This does extend to left side but is not as swollen or tender. Results Laboratory Results: 01/05/20 04:46 01/05/20 04:46 01/04/20 01/05/20 01/05/20 18:22 04:46 04:46 WBC 14.3 H RBC 4.16 Hgb 13.2 Hct 38.5 MCV 93 MCH 31.8 MCHC 34.4 RDW 12.8 Plt Count 117 L Sodium 139.9 Potassium 3.0 L* Chloride 109 H Carbon Dioxide 21 L Anion Gap 10 BUN 20 Creatinine 0.45 L Est GFR ( Amer) > 60 Glucose 200 H Calcium 8.6 Magnesium 2.1 01/05/20 04:46 WBC RBC Hgb Hct MCV MCH MCHC RDW Plt Count Sodium 141.9 Potassium 3.2 L Chloride 111 H Carbon Dioxide 22 Anion Gap 9 BUN 17 Creatinine 0.39 L Est GFR ( Amer) > 60 Glucose 157 H Calcium 8.4 Magnesium Cancelled 01/03/20 13:01 Troponin I < 0.012 Impressions: Chest X-Ray 01/03/20 12:41 IMPRESSION: Chronic lung changes with no acute cardiopulmonary findings. Soft Tissue Neck CT 01/03/20 12:41 IMPRESSION: Right peritonsillar abscess or necrotic mass. ENT consultation is recommended. Assessment & Plan - Diagnosis (1) Submandibular abscess Is this a current diagnosis for this admission?: Yes Plan: I have scheduled pt for the operating room on 01-06-2020 at 0845 for I & D and removal of any teeth that could be contributing to the abscess.
[2020-01-05] MEDS ORDERED: POTASSI CL 20 MEQ/50 ML RIDER 20 MEQ/50 ML RTUPB IV SCH (11:40)
[2020-01-05] MEDS ORDERED: POTASSIUM CHLORIDE 20 MEQ PACKET PO ONE (12:15)
[2020-01-05] MEDS: KETOROLAC TROMETHAMINE INJ/PF 30 MG/1 ML SDV IV SCH ×2 (12:22→18:32)
--- NOTE | 2020-01-05 12:25 | PDOC PROGRESS REPORT ---
Subjective Progress Note for:: 01/05/20 Subjective:: Pain is uncontrolled and she is very uncomfortable. Not able to eat much. Reason For Visit: SEPSIS DUE TO SUBMANDIBULAR ABSCESS Physical Exam Vital Signs: Temp Pulse Resp BP Pulse Ox 97.3 F 84 16 143/66 H 97 01/05/20 07:45 01/05/20 07:45 01/05/20 07:45 01/05/20 07:45 01/05/20 07:45 Intake & Output 01/04/20 01/05/20 01/06/20 06:59 06:59 06:59 Intake Total 3630 3370 50 Output Total 1 Balance 3629 3370 50 Weight 39.4 kg 39.1 kg General appearance: PRESENT: mild distress Head exam: PRESENT: other - +R facial/jaw/neck swelling/erythema Eye exam: PRESENT: EOMI Teeth exam: PRESENT: poor dentation Throat exam: ABSENT: tonsillar erythema, tonsillar exudate Neck exam: PRESENT: tenderness Respiratory exam: PRESENT: clear to auscultation cristian, unlabored Cardiovascular exam: PRESENT: RRR GI/Abdominal exam: PRESENT: normal bowel sounds, soft. ABSENT: tenderness Extremities exam: ABSENT: pedal edema Neurological exam: PRESENT: alert, awake, oriented to person, oriented to place, oriented to situation Psychiatric exam: PRESENT: appropriate affect Results Laboratory Results: 01/05/20 04:46 01/05/20 04:46 01/04/20 01/05/20 01/05/20 18:22 04:46 04:46 WBC 14.3 H RBC 4.16 Hgb 13.2 Hct 38.5 MCV 93 MCH 31.8 MCHC 34.4 RDW 12.8 Plt Count 117 L Sodium 139.9 Potassium 3.0 L* Chloride 109 H Carbon Dioxide 21 L Anion Gap 10 BUN 20 Creatinine 0.45 L Est GFR ( Amer) > 60 Glucose 200 H Calcium 8.6 Magnesium 2.1 01/05/20 04:46 WBC RBC Hgb Hct MCV MCH MCHC RDW Plt Count Sodium 141.9 Potassium 3.2 L Chloride 111 H Carbon Dioxide 22 Anion Gap 9 BUN 17 Creatinine 0.39 L Est GFR ( Amer) > 60 Glucose 157 H Calcium 8.4 Magnesium Cancelled 01/03/20 13:01 Troponin I < 0.012 Impressions: Chest X-Ray 01/03/20 12:41 IMPRESSION: Chronic lung changes with no acute cardiopulmonary findings. Soft Tissue Neck CT 01/03/20 12:41 IMPRESSION: Right peritonsillar abscess or necrotic mass. ENT consultation is recommended. Assessment and Plan - Diagnosis (1) Sepsis Qualifiers: Sepsis type: sepsis due to unspecified organism Severe sepsis shock status: without septic shock Is this a current diagnosis for this admission?: Yes (2) Dehydration Is this a current diagnosis for this admission?: Yes (3) Sinus tachycardia by electrocardiogram Is this a current diagnosis for this admission?: Yes (4) Neutrophilic leukocytosis Is this a current diagnosis for this admission?: Yes (5) Peritonsillar abscess Is this a current diagnosis for this admission?: Yes (6) Weakness Is this a current diagnosis for this admission?: Yes (7) Hyperthyroidism Is this a current diagnosis for this admission?: Yes - Plan Summary Summary: AMRITA JUAREZ is an 84 year old female with no pertinent past medical history who presents from home with 2-day history of right jaw pain/swelling and difficulty swallowing. Sepsis due to Submandibular Abscess: In the ED, she had elevated RR, HR and was found to have a neutrophilic leukocytosis (3/[address] neck was initially concerning for peritonsillar abscess versus necrotic mass. She has no evidence of airway compromise. ENT has been consulted, and felt this is due to an odontogenic infection arising from the mandibular molar on the right, and that she needed oral surgery evaluation. - ENT consulted - Oral Surgery consulted and planning to take to the OR tomorrow (NPO past MN) - continue Unasyn/Clinda IV - completed Decadron 8 mg IV Q8H x4 doses - pain control with Toradol/Tylenol scheduled + Morphine PRN breakthrough pain - aspiration precautions Lactic Acidosis and Sinus Tachycardia - due to Dehydration: in the setting of poor oral intake and above infection. Resolved with IVF hydration. Low TSH: TSH low at 0.03, but free T4 is normal and T3 is actually decreased. This is consistent with illness-induced thyroid lab abnormalities (non-thyroidal illness) and NOT hyperthyroidism, as previously thought. - repeat TSH in 4-6 weeks as outpatient after resolution of acute illness - she does NOT need treatment for hyperthyroidism DVT ppx: Lovenox (HELD tonight in preparation for OR tomorrow) Code Status: DNR/DNI - Time Time Spent with patient: 35 or more minutes Anticipated Discharge Disposition: Home, Self Care Anticipated Discharge Timeframe: within 48 hours
[2020-01-05] MEDS: PANTOPRAZOLE SODIUM 40 MG VIAL IV SCH (12:28)
[2020-01-05] MEDS: ACETAMINOPHEN SOLN 325 MG/10.15 ML UDCUP PO SCH ×2 (15:42→18:32)
[2020-01-05] MEDS: POTASSI CL 20 MEQ/50 ML RIDER 20 MEQ/50 ML RTUPB IV SCH ×2 (15:42→21:17)
[2020-01-05 18:13] LABS: ANION GAP 7 (5-19); BLOOD UREA NITROGEN 17 mg/dL (7-20); CALCIUM 8.5 mg/dL (8.4-10.2); CARBON DIOXIDE 22 mmol/L (22-30); CHLORIDE 111 mmol/L (98-107); GLUCOSE 197 mg/dL (75-110)
[2020-01-05 18:24] LABS: POTASSIUM 4.2 mmol/L (3.6-5.0)
[2020-01-06] MEDS: CLINDAMYCIN 600 MG/D5W RTU 600 MG/50 ML RTUPB IV SCH ×4 (00:34→22:09)
[2020-01-06] MEDS: KETOROLAC TROMETHAMINE INJ/PF 30 MG/1 ML SDV IV SCH ×4 (01:19→18:34)
[2020-01-06] MEDS: AMPICILLIN SODIUM/SULBACTAM NA 3 GM in NORMAL SALINE 100 ML IV SCH ×4 (01:55→19:40)
[2020-01-06] MEDS: POTASSI CL 20 MEQ/NS 1L 1,000 ML IV PRN ×2 (05:41→22:09)
[2020-01-06 05:51] LABS: ANION GAP 6 (5-19); BLOOD UREA NITROGEN 14 mg/dL (7-20); CARBON DIOXIDE 21 mmol/L (22-30); CHLORIDE 112 mmol/L (98-107); GLUCOSE 140 mg/dL (75-110); POTASSIUM 3.7 mmol/L (3.6-5.0)
[2020-01-06] MEDS ORDERED: ONDANSETRON HCL INJ/PF 4 MG/2 ML SDV ONE (06:33)
[2020-01-06] MEDS ORDERED: PROPOFOL INJ 200 MG/20 ML VIAL IV ONE (06:33)
[2020-01-06] MEDS ORDERED: MIDAZOLAM 2 MG/2 ML INJ ONE (06:33)
[2020-01-06] MEDS ORDERED: KETAMINE HCL INJ 500 MG/10 ML VIAL ONE (06:33)
[2020-01-06] MEDS ORDERED: FENTANYL CITRATE INJ/PF 100 MCG/2 ML AMPUL ONE (06:33)
[2020-01-06] MEDS ORDERED: OXYMETAZOLINE HCL 0.05% NASAL SPRAY 15 ML BOTTLE ONE (08:27)
[2020-01-06] MEDS ORDERED: BUPIVACAINE HCL 0.5%/EPI 1:200000 INJ 1.8 ML CARTRIDGE ONE (08:39)
[2020-01-06] MEDS ORDERED: LIDOCAINE 2%/EPINEPHRINE INJ 1.7 ML CARTRIDGE ONE (08:39)
[2020-01-06] MEDS: PANTOPRAZOLE SODIUM 40 MG VIAL IV SCH (09:40)
[2020-01-06] MEDS: POTASSIUM CHLORIDE 10 MEQ TABLET.ER PO SCH ×3 (09:41→18:42)
[2020-01-06] MEDS: ACETAMINOPHEN SOLN 325 MG/10.15 ML UDCUP PO SCH ×3 (09:41→18:42)
[2020-01-06] MEDS: ONDANSETRON HCL INJ/PF 4 MG/2 ML SDV IV PRN (18:34)
--- NOTE | 2020-01-06 20:15 | PDOC PROGRESS REPORT ---
Subjective Progress Note for:: 01/06/20 Subjective:: Pain/swelling/erythema improving. She is able to eat/drink more easily. Reason For Visit: PERITONSILLAR ABSCESS,WEAKNESS,RIGHT FACIAL Physical Exam Vital Signs: Temp Pulse Resp BP Pulse Ox 97.8 F 80 16 126/53 H 97 01/06/20 15:53 01/06/20 15:53 01/06/20 15:53 01/06/20 15:53 01/06/20 15:53 Intake & Output 01/05/20 01/06/20 01/07/20 06:59 06:59 06:59 Intake Total 3370 2302 1060 Balance 3370 2302 1060 Weight 39.1 kg 39.1 kg General appearance: PRESENT: no acute distress Head exam: PRESENT: other - cheek/jaw/throat/neck swelling/erythema improving but still present Respiratory exam: PRESENT: clear to auscultation cristian, unlabored. ABSENT: crackles Cardiovascular exam: PRESENT: RRR GI/Abdominal exam: PRESENT: normal bowel sounds, soft. ABSENT: tenderness Neurological exam: PRESENT: alert, awake Psychiatric exam: PRESENT: appropriate affect Results Laboratory Results: 01/05/20 04:46 01/06/20 04:35 01/06/20 04:35 Sodium 138.9 Potassium 3.7 Chloride 112 H Carbon Dioxide 21 L Anion Gap 6 BUN 14 Creatinine 0.37 L Est GFR ( Amer) > 60 Glucose 140 H Calcium 8.0 L Magnesium 2.1 01/03/20 13:01 Troponin I < 0.012 Impressions: Chest X-Ray 01/03/20 12:41 IMPRESSION: Chronic lung changes with no acute cardiopulmonary findings. Soft Tissue Neck CT 01/03/20 12:41 IMPRESSION: Right peritonsillar abscess or necrotic mass. ENT consultation is recommended. Assessment and Plan - Diagnosis (1) Sepsis Qualifiers: Sepsis type: sepsis due to unspecified organism Severe sepsis shock status: without septic shock Is this a current diagnosis for this admission?: Yes (2) Dehydration Is this a current diagnosis for this admission?: Yes (3) Sinus tachycardia by electrocardiogram Is this a current diagnosis for this admission?: Yes (4) Neutrophilic leukocytosis Is this a current diagnosis for this admission?: Yes (5) Peritonsillar abscess Is this a current diagnosis for this admission?: Yes (6) Weakness Is this a current diagnosis for this admission?: Yes (7) Hyperthyroidism Is this a current diagnosis for this admission?: Yes - Plan Summary Summary: AMRITA JUAREZ is an 84 year old female with no pertinent past medical history who presents from home with 2-day history of right jaw pain/swelling and difficulty swallowing. Sepsis due to Submandibular Abscess: In the ED, she had elevated RR, HR and was found to have a neutrophilic leukocytosis (3/[address] neck was initially concerning for peritonsillar abscess versus necrotic mass. She has no evidence of airway compromise. ENT has been consulted, and felt this is due to an odontogenic infection arising from the mandibular molar on the right, and that she needed oral surgery evaluation. - ENT consulted - Oral Surgery consulted and planning bedside I&D tomorrow - continue Unasyn/Clinda IV - completed Decadron 8 mg IV Q8H x4 doses - pain control with Toradol/Tylenol scheduled + Morphine PRN breakthrough pain - aspiration precautions Lactic Acidosis and Sinus Tachycardia - due to Dehydration: in the setting of p oor oral intake and above infection. Resolved with IVF hydration. Low TSH: TSH low at 0.03, but free T4 is normal and T3 is actually decreased. This is consistent with illness-induced thyroid lab abnormalities (non-thyroidal illness) and NOT hyperthyroidism, as previously thought. - repeat TSH in 4-6 weeks as outpatient after resolution of acute illness - she does NOT need treatment for hyperthyroidism DVT ppx: Lovenox (HELD tonight in preparation for I&D tomorrow) Code Status: DNR/DNI - Time Time Spent with patient: 25-34 minutes Anticipated Discharge Disposition: Home, Self Care Anticipated Discharge Timeframe: within 48 hours
[2020-01-07] MEDS: KETOROLAC TROMETHAMINE INJ/PF 30 MG/1 ML SDV IV SCH ×5 (02:45→23:08)
[2020-01-07] MEDS: AMPICILLIN SODIUM/SULBACTAM NA 3 GM in NORMAL SALINE 100 ML IV SCH ×5 (02:47→23:08)
[2020-01-07 06:24] LABS: ANION GAP 5 (5-19); BLOOD UREA NITROGEN 7 mg/dL (7-20); CALCIUM 7.6 mg/dL (8.4-10.2); CARBON DIOXIDE 22 mmol/L (22-30); CHLORIDE 107 mmol/L (98-107); GLUCOSE 109 mg/dL (75-110)
[2020-01-07] MEDS: CLINDAMYCIN 600 MG/D5W RTU 600 MG/50 ML RTUPB IV SCH ×3 (06:52→21:41)
[2020-01-07] MEDS ORDERED: POLYETHYLENE GLYCOL 3350 POWDER 17 GM/1 PACKET PO PRN (08:17)
[2020-01-07] MEDS: PANTOPRAZOLE SODIUM 40 MG VIAL IV SCH (09:59)
[2020-01-07] MEDS: POTASSIUM CHLORIDE 10 MEQ TABLET.ER PO SCH ×3 (10:00→18:23)
[2020-01-07] MEDS: MAGNESIUM OXIDE 400 MG TABLET PO SCH (10:00)
[2020-01-07] MEDS: ACETAMINOPHEN SOLN 325 MG/10.15 ML UDCUP PO SCH ×3 (10:02→18:34)
[2020-01-07] MEDS: POTASSI CL 20 MEQ/NS 1L 1,000 ML IV PRN (12:46)
[2020-01-07] MEDS: ENOXAPARIN SODIUM INJ 30 MG/0.3 ML DISP.SYRIN SUBCUT SCH (13:45)
--- NOTE | 2020-01-07 15:10 | PDOC PROGRESS REPORT ---
Subjective Progress Note for:: 01/07/20 Subjective:: Pt sitting in bed alert in NAD. No c/o dysphagia. Reason For Visit: PERITONSILLAR ABSCESS,WEAKNESS,RIGHT FACIAL Physical Exam Vital Signs: Temp Pulse Resp BP Pulse Ox 98.5 F 84 15 127/58 H 98 01/07/20 07:54 01/07/20 07:54 01/07/20 07:54 01/07/20 07:54 01/07/20 07:54 Intake & Output 01/06/20 01/07/20 01/08/20 06:59 06:59 06:59 Intake Total 2302 2360 1520 Balance 2302 2360 1520 Weight 39.1 kg 43.8 kg Mouth exam: PRESENT: other - opening is increased from yesterday to almost two fingers. Swelling still present right inferior buccal space Neck exam: PRESENT: other - contiued swelling right submandibular space with some erythema of skin above clavicles. There is also left submandibular swelling but less than right side and there is new swelling near right midline at level of clavicles. The skin over this area is also red. All areas of swelling are firm and doughy. Results Laboratory Results: 01/05/20 04:46 01/07/20 05:50 01/07/20 05:50 Sodium 134.2 L Potassium 4.0 Chloride 107 Carbon Dioxide 22 Anion Gap 5 BUN 7 Creatinine 0.37 L Est GFR ( Amer) > 60 Glucose 109 Calcium 7.6 L Magnesium 1.9 01/03/20 13:01 Troponin I < 0.012 Impressions: Chest X-Ray 01/03/20 12:41 IMPRESSION: Chronic lung changes with no acute cardiopulmonary findings. Soft Tissue Neck CT 01/03/20 12:41 IMPRESSION: Right peritonsillar abscess or necrotic mass. ENT consultation is recommended. Assessment & Plan - Diagnosis (1) Submandibular abscess Is this a current diagnosis for this admission?: Yes - Time Anticipated Discharge Disposition: - unknown at this time Anticipated Discharge Timeframe: unknown at this time - Plan Summary Plan Summary: Spoke with Dr. Quijano at bedside. I recommend to repeat CT scan to include neck and chest to make sure that infection has not spread to mediastinum and to see where pockets of exudate are located.
--- NOTE | 2020-01-07 16:36 | PDOC PROGRESS REPORT ---
Subjective Progress Note for:: 01/07/20 Subjective:: She feels okay, unchanged, feels like she has not had much progress for the last few days. Reason For Visit: PERITONSILLAR ABSCESS,WEAKNESS,RIGHT FACIAL Physical Exam Vital Signs: Temp Pulse Resp BP Pulse Ox 98.5 F 84 15 127/58 H 98 01/07/20 07:54 01/07/20 07:54 01/07/20 07:54 01/07/20 07:54 01/07/20 07:54 Intake & Output 01/06/20 01/07/20 01/08/20 06:59 06:59 06:59 Intake Total 2302 2360 1520 Balance 2302 2360 1520 Weight 39.1 kg 43.8 kg General appearance: PRESENT: no acute distress Head exam: PRESENT: atraumatic Eye exam: ABSENT: conjunctival injection, scleral icterus Mouth exam: PRESENT: moist Neck exam: PRESENT: other - increased swelling of R submandibular space, some L submandibular swelling but less than R side + new swelling near right midline at level of clavicles; the swollen areas are warm, look red, and feel fluctuant. ABSENT: JVD Respiratory exam: PRESENT: clear to auscultation cristian, unlabored. ABSENT: crackles Cardiovascular exam: PRESENT: RRR GI/Abdominal exam: PRESENT: normal bowel sounds, soft. ABSENT: tenderness Musculoskeletal exam: PRESENT: normal inspection Neurological exam: PRESENT: alert, awake, oriented to person, oriented to situation. ABSENT: oriented to time Psychiatric exam: PRESENT: appropriate affect Results Laboratory Results: 01/05/20 04:46 01/07/20 05:50 01/07/20 05:50 Sodium 134.2 L Potassium 4.0 Chloride 107 Carbon Dioxide 22 Anion Gap 5 BUN 7 Creatinine 0.37 L Est GFR ( Amer) > 60 Glucose 109 Calcium 7.6 L Magnesium 1.9 01/03/20 13:01 Troponin I < 0.012 Impressions: Chest X-Ray 01/03/20 12:41 IMPRESSION: Chronic lung changes with no acute cardiopulmonary findings. Soft Tissue Neck CT 01/03/20 12:41 IMPRESSION: Right peritonsillar abscess or necrotic mass. ENT consultation is recommended. Assessment and Plan - Diagnosis (1) Sepsis Qualifiers: Sepsis type: sepsis due to unspecified organism Severe sepsis shock status: without septic shock Is this a current diagnosis for this admission?: Yes (2) Dehydration Is this a current diagnosis for this admission?: Yes (3) Sinus tachycardia by electrocardiogram Is this a current diagnosis for this admission?: Yes (4) Neutrophilic leukocytosis Is this a current diagnosis for this admission?: Yes (5) Peritonsillar abscess Is this a current diagnosis for this admission?: Yes (6) Weakness Is this a current diagnosis for this admission?: Yes (7) Hyperthyroidism Is this a current diagnosis for this admission?: Yes - Plan Summary Summary: AMRITA JUAREZ is an 84 year old female with no pertinent past medical history who presents from home with 2-day history of right jaw pain/swelling and difficulty swallowing. Sepsis due to Submandibular Abscess: In the ED, she had elevated RR, HR and was found to have a neutrophilic leukocytosis (3/[address] neck was initially concerning for peritonsillar abscess versus necrotic mass. She has no evidence of airway compromise. ENT was consulted, and felt this was due to an odontogenic infection arising from the mandibular molar on the right, and that she needed oral surgery evaluation. Oral surgery also consulted and concerned that infection is spread to L neck and upper chest, and requesting a CT face/neck to level of upper check to further investigate. - repeat CT ordered, discussed with radiology - no evidence of resp compromise - continue Unasyn/Clinda IV - completed Decadron 8 mg IV Q8H x4 doses - pain control with Toradol/Tylenol scheduled + Morphine PRN breakthrough pain - aspiration precautions Lactic Acidosis and Sinus Tachycardia - due to Dehydration: in the setting of poor oral intake and above infection. Resolved with IVF hydration. Low TSH: TSH low at 0.03, but free T4 is normal and T3 is actually decreased. This is consistent with illness-induced thyroid lab abnormalities (non-thyroidal illness) and NOT hyperthyroidism, as previously thought. - repeat TSH in 4-6 weeks as outpatient after resolution of acute illness - she does NOT need treatment for hyperthyroidism DVT ppx: Lovenox Code Status: DNR/DNI - Time Time Spent with patient: 35 or more minutes Anticipated Discharge Disposition: Home, Self Care Anticipated Discharge Timeframe: within 72 hours
--- NOTE | 2020-01-07 17:47 | RADIOLOGY REPORT (SQ) ---
EXAM DESCRIPTION: CT SOFT TISSUE NECK WITH IMAGES COMPLETED DATE/TIME: 01/07/2020 5:07 pm REASON FOR STUDY: infection of R cheek, jaw, b/l neck/clavicles COMPARISON: CT neck 01/03/2020 TECHNIQUE: Post IV contrasted scanning from skull base through lung apices with review of bone, soft tissue and lung windows. Reconstructed coronal and sagittal MPR images reviewed. All images stored on PACS. All CT scanners at this facility use dose modulation, iterative reconstruction, and/or weight based d osing when appropriate to reduce radiation dose to as low as reasonably achievable (ALARA). [facility]: Dose Right [facility]: CareDose [facility]: Dose Right [facility]: Teradose 4D [facility]: [place] CONTRAST TYPE AND DOSE: contrast/concentration: Isovue 350.00 mmol/ml; Total Contrast Delivered: 69. 9 ml; Total Saline Delivered: 55.0 ml RENAL FUNCTION: BUN 7; creatinine 0.37 RADIATION DOSE: CT Rad equipment meets quality standard of care and radiation dose reduction techniq ues were employed. CTDIvol: 7.2 mGy. DLP: 247 mGy-cm. . LIMITATIONS: None. FINDINGS: As seen on the comparison study, there is soft tissue fullness in the right peritonsillar space obliterating the right piriform sinus. The airway remains widely patent. There is also increasing irregularity of the right submandibular gland and profound edema throughout the superficial soft tissues of the anterior neck bilaterally extending inferiorly to the level of th e sternoclavicular joints with some effacement of the fat in the supraclavicular region on the right. No discrete calcifications are seen in the major salivary glands. There is no edema or inflammatory changes in the danger space or extending into the mediastinum. SKULL BASE: Intact. LYMPHADENOPATHY: Several small cervical lymph nodes are noted which are not abnormal in morphology or size. MUCOSAL MASSES OR ASYMMETRY: No mucosal masses or asymmetry. LARYNX/CORDS: No abnormal findings. VASCULAR STRUCTURES: The major vessels are patent. LUNG APICES: Clear. New small bilateral pleural effusions. BONES: Intact. THYROID: Normal size. No masses. PARANASAL SINUSES: Clear. IMPRESSION: Diffuse subcutaneous fluid/edema in the superficial soft tissues of the anterior neck bi laterally from approximately the angle of the mandible superiorly to the sternoclavicular joints infe riorly. This may represent trans-spatial extension of the previously described right tonsillar absce ss/infection. A superimposed sialadenitis may also be present given the slightly abnormal appearance of the right submandibular gland. New small bilateral pleural effusions. TECHNICAL DOCUMENTATION: JOB ID: [id number] Quality ID # [id number]: Final reports with documentation of one or more dose reduction techniques (e.g., Au tomated exposure control, adjustment of the mA and/or kV according to patient size, use of iterative reconstruction technique) 2010 [employer]- All Rights Reserved Reading location - IP/workstation name: [email or web address]
[2020-01-08 04:46] LABS: ABSOLUTE LYMPHOCYTES (AUTO) 0.9 10^3/uL (0.5-4.7); ABSOLUTE MONOCYTES (AUTO) 0.4 10^3/uL (0.1-1.4); BASOPHILS % (AUTO) 0.2 % (0-2); EOSINOPHILS % (AUTO) 0.2 % (0-6); HEMATOCRIT 37.9 % (36.0-47.0); LYMPHOCYTES % (AUTO) 6.1 % (13-45); MEAN CORPUSCULAR HEMOGLOBIN 31.6 pg (27.0-33.4); MEAN CORPUSCULAR HGB CONC 34.4 g/dL (32.0-36.0); MEAN CORPUSCULAR VOLUME 92 fl (80-97); MONOCYTES % (AUTO) 2.5 % (3-13); PLATELET COUNT 102 10^3/uL (150-450); RED BLOOD COUNT 4.11 10^6/uL (3.72-5.28); RED CELL DISTRIBUTION WIDTH 12.7 % (11.5-14.0); TOTAL CELLS COUNTED % (AUTO) 100 %; WHITE BLOOD COUNT 14.3 10^3/uL (4.0-10.5)
[2020-01-08] MEDS: CLINDAMYCIN 600 MG/D5W RTU 600 MG/50 ML RTUPB IV SCH ×2 (05:01→17:11)
[2020-01-08] MEDS: KETOROLAC TROMETHAMINE INJ/PF 30 MG/1 ML SDV IV SCH ×4 (05:01→23:06)
[2020-01-08 05:36] LABS: BLOOD UREA NITROGEN 4 mg/dL (7-20); CALCIUM 7.5 mg/dL (8.4-10.2); GLUCOSE 111 mg/dL (75-110); POTASSIUM 3.9 mmol/L (3.6-5.0)
[2020-01-08 05:42] LABS: ANION GAP 6 (5-19); CARBON DIOXIDE 24 mmol/L (22-30); CHLORIDE 108 mmol/L (98-107)
[2020-01-08] MEDS: AMPICILLIN SODIUM/SULBACTAM NA 3 GM in NORMAL SALINE 100 ML IV SCH ×4 (06:11→23:05)
[2020-01-08] MEDS: POTASSIUM CHLORIDE 10 MEQ TABLET.ER PO SCH ×3 (08:03→17:23)
[2020-01-08] MEDS: MAGNESIUM OXIDE 400 MG TABLET PO SCH (09:19)
[2020-01-08] MEDS: PANTOPRAZOLE SODIUM 40 MG VIAL IV SCH (09:19)
[2020-01-08] MEDS ORDERED: ONDANSETRON HCL INJ/PF 4 MG/2 ML SDV ONE (10:55)
[2020-01-08] MEDS ORDERED: SUCCINYLCHOLINE CHLORIDE INJ 200 MG/10 ML VIAL ONE (10:55)
[2020-01-08] MEDS ORDERED: PHENYLEPHRINE HCL INJ/PF 10 MG/1 ML SDV ONE (10:55)
--- NOTE | 2020-01-08 11:58 | PDOC PROGRESS REPORT ---
Subjective Progress Note for:: 01/08/20 Subjective:: Ms. Morgan is a pleasant 84-year-old female who we had evaluated several days ago for rule out peritonsillar abscess. At the initial evaluation it was determined the patient most likely had an odontogenic infection resulting in an abscess involving the masseter and possibly submandibular spaces. At the initial examination the peritonsillar areas were flat without evidence of abscess formation. The initial CT scan was reviewed and there was no evidence of a deep neck space infection. The patient was then subsequently evaluated by oral/maxillofacial surgery who were going to take the patient to the operating room on Thursday, however because she did not have a COVID-19 test I were unable to. The hospitalist called me this a.m. to reevaluate the patient. Reason For Visit: Asked to reevaluate the patient. Physical Exam Vital Signs: Temp Pulse Resp BP Pulse Ox 98.2 F 93 18 145/66 H 100 01/08/20 07:24 01/08/20 07:24 01/08/20 07:24 01/08/20 07:24 01/08/20 07:24 Intake & Output 01/07/20 01/08/20 01/09/20 06:59 06:59 06:59 Intake Total 2360 2980 1010 Balance 2360 2980 1010 Weight 43.8 kg 43.8 kg Exam: Oral cavity/oropharyngeal examination: Peritonsillar areas are flat bilaterally. No evidence of erythema or fullness. No evidence peritonsillar abscess. Edema and erythema involving the gingival buccal sulcus on the right which is tender to palpation. The floor mouth feels soft. There is mild trismus. Face/neck: Swelling and tenderness over the ramus right mandible. The edema and tenderness extends to the submandibular area. There is also brawny edema involving the anterior neck down to the sternal notch. The edema is pitting. General: Patient no apparent distress. No airway compromise. Results Laboratory Results: 01/08/20 04:04 01/08/20 04:04 01/08/20 01/08/20 04:04 04:04 WBC 14.3 H RBC 4.11 Hgb 13.0 Hct 37.9 MCV 92 MCH 31.6 MCHC 34.4 RDW 12.7 Plt Count 102 L Seg Neutrophils % 91.0 H Sodium 138.4 Potassium 3.9 Chloride 108 H Carbon Dioxide 24 Anion Gap 6 BUN 4 L Creatinine 0.39 L Est GFR ( Amer) > 60 Glucose 111 H Calcium 7.5 L 01/03/20 13:01 Troponin I < 0.012 Impressions: Chest X-Ray 01/03/20 12:41 IMPRESSION: Chronic lung changes with no acute cardiopulmonary findings. Soft Tissue Neck CT 01/07/20 00:00 IMPRESSION: Diffuse subcutaneous fluid/edema in the superficial soft tissues of the anterior neck bilaterally from approximately the angle of the mandible superiorly to the sternoclavicular joints inferiorly. This may represent trans- spatial extension of the previously described right tonsillar abscess/infection. A superimposed sialadenitis may also be present given the slightly abnormal appearance of the right submandibular gland. New small bilateral pleural effusions. CT scan soft tissues neck: Date of the CT is [address] scan was personally reviewed by myself. Reveals abscess formation surrounding the right mandibular body/ramus. Possible extension to the submandibular/masseter spaces. No evidence of abscess formation in the neck. Assessment & Plan - Diagnosis (1) Odontogenic infection of jaw Is this a current diagnosis for this admission?: Yes Plan: 1. The diagnosis and treatment plan were discussed with Dr. Quijano and Dr. Hanson (oral/maxillofacial surgeon). 2. The physical exam and CT scan are consistent with an odontogenic infection most likely arising from mandibular molar on the right side. The infection appears to extend to the submandibular/masseter spaces. Physical exam reveals that the peritonsillar area is flat without evidence of fullness. After discu ssion with Dr. Hanson, his plan is to take the patient to the operating room for drainage of the dental abscess. 3. Drainage of the dental abscess should resolve the brawny edema involving the anterior neck. Otolaryngology will continue to follow in case other procedures are needed. 4. Continue with IV antibiotics. Recommend broad-spectrum antibiotics to cover anaerobes, gram-positive and gram-negative's. Thank you for allowing me to participate in the care of this patient. - Time Time Spent with patient: 25-34 minutes Level of Care: MEDICAL
[2020-01-08] MEDS: ENOXAPARIN SODIUM INJ 30 MG/0.3 ML DISP.SYRIN SUBCUT SCH (12:29)
[2020-01-08] MEDS: ACETAMINOPHEN SOLN 325 MG/10.15 ML UDCUP PO SCH ×3 (12:47→18:15)
[2020-01-08] MEDS: POTASSI CL 40 MEQ/NS 1L 1,000 ML IV PRN ×2 (12:48→17:03)
[2020-01-08] MEDS ORDERED: LIDOCAINE 2%/EPINEPHRINE INJ 1.7 ML CARTRIDGE ONE (13:44)
[2020-01-08] MEDS ORDERED: BUPIVACAINE HCL 0.5%/EPI 1:200000 INJ 1.8 ML CARTRIDGE ONE (13:44)
[2020-01-08] MEDS ORDERED: FENTANYL CITRATE INJ/PF 100 MCG/2 ML AMPUL ONE (13:49)
[2020-01-08] MEDS ORDERED: PROPOFOL INJ 200 MG/20 ML VIAL IV ONE (13:50)
[2020-01-08] MEDS ORDERED: MIDAZOLAM 2 MG/2 ML INJ ONE (13:50)
[2020-01-08] MEDS ORDERED: CLINDAMYCIN 600 MG/D5W RTU 600 MG/50 ML RTUPB IV SCH (14:00)
[2020-01-08] MEDS ORDERED: MEPERIDINE HCL/PF INJ 25 MG/1 ML DISP.SYRIN IV PRN (14:36)
[2020-01-08] MEDS ORDERED: OXYCODONE-ACETAMINOPHEN 5-325 MG TABLET PO PRN ×2 (14:36)
[2020-01-08] MEDS ORDERED: PROMETHAZINE HCL INJ 25 MG/1 ML VIAL IV PRN ×2 (14:36)
[2020-01-08] MEDS ORDERED: FENTANYL CITRATE INJ/PF 100 MCG/2 ML AMPUL IV PRN ×3 (14:36)
[2020-01-08] MEDS ORDERED: DIPHENHYDRAMINE HCL 50 MG/ML VIAL IV PRN (14:36)
[2020-01-08] MEDS ORDERED: MORPHINE SULFATE 10 MG/ML INJ IV PRN (14:36)
--- NOTE | 2020-01-08 15:08 | Operative Report ---
Operative Report DATE OF SURGERY: 01/08/20 PREOPERATIVE DIAGNOSIS: right peritonsillar/submandibular/neck abscess POSTOPERATIVE DIAGNOSIS: Same OPERATION: Intra-and extraoral incision and drainage of multi-space abscess SURGEON: RYAN COLES ANESTHESIA: GA TISSUE REMOVED OR ALTERED: None COMPLICATIONS: None ESTIMATED BLOOD LOSS: 10 mL INTRAOPERATIVE FINDINGS: Patient had fullness in the right peritonsillar region and fullness of the right mandibular buccal vestibule which extended to the submandibular region down to the level of the clavicles and across to the left submandibular area. The neck swelling was doughy and firm. There were no carious or broken teeth in either the right maxillary or right mandibular quadrants. PROCEDURE: The patient was brought into the operating room #1 and placed on the operating room table in supine position. General anesthesia was induced via a peripheral IV continued utilizing endotracheal intubation. The patient was prepped for an extraoral procedure. A total of 2 carpules of 2% lidocaine with 1-100,000 epinephrine and 1 carpule of half percent Marcaine with 1-200,000 epinephrine was delivered to the planned surgical sites via nerve block and infiltration. A moistened oropharyngeal throat pack was placed. A 15 blade was used to make an incision in the right buccal vestibule. Blunt dissection was used to enter the subcutaneous spaces down to the level of mandibular bone. Purulent discharge was obtained from this area. An incision was then made with a #15 blade in the right submandibular area. Blunt dissection to the inferior border of the mandible and up the medial aspect of the ramus to the peritonsillar region resulted in copious amounts of purulent discharge. The dissection was then continued to the left side of the neck through the same incision and the subcutaneous spaces also producing copious amounts of purulent discharge. Dissection was also continued inferiorly towards the clavicles in the subcutaneous spaces also resulting in copious amounts of purulent discharge. The neck was massaged to remove as much of the purulent material as possible. Cultures were taken from the discharge intraorally and extraorally. All of the dissection sites were irrigated with one third hydrogen peroxide, one third Beta dine and one third normal saline. This was followed by copious irrigation with normal saline solution. 1/4 inch Greenleaf drain was placed intraorally and secured with 4-0 black silk suture. A 1/4 inch Jai drain was placed in the extraoral incision site on the medial part of the mandible up toward the peritonsillar region and a 1/4 inch Greenleaf drain was placed subcutaneously extending to the left side of the neck. These drains were secured with 4-0 black silk suture as well. The oral cavity was irrigated with normal saline solution, suctioned and the throat pack removed. The oropharynx was then suctioned. A 4 x 4 gauze was placed over the extraoral drain site and secured with tape. The patient was awakened from general anesthesia, extubated in the operating room and taken to recovery room in spontaneous breathing fashion.
[2020-01-08] MEDS: ONDANSETRON HCL INJ/PF 4 MG/2 ML SDV IV PRN (16:31)
--- NOTE | 2020-01-08 17:18 | PDOC PROGRESS REPORT ---
Subjective Progress Note for:: 01/08/20 Subjective:: This morning, she noted continued pain/discomfort in face/neck. She felt overall that she was not making any progress despite 5 days of antibiotics. Reason For Visit: PERITONSILLAR ABSCESS,WEAKNESS,RIGHT FACIAL Physical Exam Vital Signs: Temp Pulse Resp BP Pulse Ox 98.2 F 101 H 21 H 163/67 H 98 01/08/20 16:55 01/08/20 16:55 01/08/20 16:55 01/08/20 16:55 01/08/20 16:55 Intake & Output 01/07/20 01/08/20 01/09/20 06:59 06:59 06:59 Intake Total 2360 2980 1360 Balance 2360 2980 1360 Weight 43.8 kg 43.8 kg General appearance: PRESENT: no acute distress Head exam: PRESENT: other - decreased edema/erythema to right cheek/jaw Neck exam: PRESENT: other - increasing edema/erythema/induration to bilateral R>L neck Respiratory exam: PRESENT: clear to auscultation cristian Cardiovascular exam: PRESENT: RRR GI/Abdominal exam: PRESENT: normal bowel sounds, soft Extremities exam: ABSENT: +1 edema Neurological exam: PRESENT: alert, awake, oriented to person, oriented to place, oriented to situation Psychiatric exam: PRESENT: appropriate affect Results Laboratory Results: 01/08/20 04:04 01/08/20 04:04 01/08/20 01/08/20 04:04 04:04 WBC 14.3 H RBC 4.11 Hgb 13.0 Hct 37.9 MCV 92 MCH 31.6 MCHC 34.4 RDW 12.7 Plt Count 102 L Seg Neutrophils % 91.0 H Sodium 138.4 Potassium 3.9 Chloride 108 H Carbon Dioxide 24 Anion Gap 6 BUN 4 L Creatinine 0.39 L Est GFR ( Amer) > 60 Glucose 111 H Calcium 7.5 L 01/03/20 16:19 Blood Blood Culture - Final NO GROWTH IN 5 DAYS 01/03/20 15:05 Blood Blood Culture - Final NO GROWTH IN 5 DAYS 01/03/20 13:01 Troponin I < 0.012 Impressions: Chest X-Ray 01/03/20 12:41 IMPRESSION: Chronic lung changes with no acute cardiopulmonary findings. Soft Tissue Neck CT 01/07/20 00:00 IMPRESSION: Diffuse subcutaneous fluid/edema in the superficial soft tissues of the anterior neck bilaterally from approximately the angle of the mandible superiorly to the sternoclavicular joints inferiorly. This may represent trans- spatial extension of the previously described right tonsillar abscess/infection. A superimposed sialadenitis may also be present given the slightly abnormal appearance of the right submandibular gland. New small bilateral pleural effusions. Assessment and Plan - Diagnosis (1) Sepsis Qualifiers: Sepsis type: sepsis due to unspecified organism Severe sepsis shock status: without septic shock Is this a current diagnosis for this admission?: Yes (2) Dehydration Is this a current diagnosis for this admission?: Yes (3) Sinus tachycardia by electrocardiogram Is this a current diagnosis for this admission?: Yes (4) Neutrophilic leukocytosis Is this a current diagnosis for this admission?: Yes (5) Peritonsillar abscess Is this a current diagnosis for this admission?: Yes (6) Weakness Is this a current diagnosis for this admission?: Yes (7) Hyperthyroidism Is this a current diagnosis for this admission?: Yes - Plan Summary Summary: AMRITA JUAREZ is an 84 year old female with no pertinent past medical history who presented from home with 2-day history of right jaw pain/swelling and difficulty swallowing. Sepsis due to Submandibular Abscess: In the ED, she had elevated RR, HR and was found to have a neutrophilic leukocytosis (3/[address] neck was initially concerning for peritonsillar abscess. She had no evidence of airway compromise. ENT was consulted, and felt this was due to an odontogenic infection arising from the mandibular molar on the right, and that she needed oral surgery evaluation. Oral surgery consulted and she went to the OR on 01/08/2020. - ENT and [facility] are following closely - she still has [address] - no evidence of resp compromise - continue Unasyn/Clinda IV - completed Decadron 8 mg IV Q8H x4 doses - pain control with Toradol/Tylenol scheduled + Morphine PRN breakthrough pain - aspiration precautions Lactic Acidosis and Sinus Tachycardia - due to Dehydration: in the setting of poor oral intake and above infection. Resolved with IVF hydration. Low TSH: TSH low at 0.03, but free T4 is normal and T3 is actually decreased. This is consistent with illness-induced thyroid lab abnormalities (non-thyroidal illness) and NOT hyperthyroidism, as previously thought. - repeat TSH in 4-6 weeks as outpatient after resolution of acute illness - she does NOT need treatment for hyperthyroidism DVT ppx: Lovenox Code Status: DNR/DNI - Time Time Spent with patient: 35 or more minutes Anticipated Discharge Disposition: Home, Self Care Anticipated Discharge Timeframe: within 72 hours
[2020-01-09] MEDS: CLINDAMYCIN 600 MG/D5W RTU 600 MG/50 ML RTUPB IV SCH ×2 (01:32→10:39)
[2020-01-09] MEDS: KETOROLAC TROMETHAMINE INJ/PF 30 MG/1 ML SDV IV SCH ×4 (05:37→22:46)
[2020-01-09] MEDS: AMPICILLIN SODIUM/SULBACTAM NA 3 GM in NORMAL SALINE 100 ML IV SCH ×3 (05:38→17:45)
[2020-01-09 05:57] LABS: HEMATOCRIT 34.9 % (36.0-47.0); HEMOGLOBIN 12.5 g/dL (12.0-15.5); MEAN CORPUSCULAR HEMOGLOBIN 32.5 pg (27.0-33.4); MEAN CORPUSCULAR HGB CONC 35.8 g/dL (32.0-36.0); MEAN CORPUSCULAR VOLUME 91 fl (80-97); PLATELET COUNT 148 10^3/uL (150-450); RED BLOOD COUNT 3.84 10^6/uL (3.72-5.28); RED CELL DISTRIBUTION WIDTH 13.1 % (11.5-14.0); WHITE BLOOD COUNT 8.8 10^3/uL (4.0-10.5)
[2020-01-09 06:26] LABS: ANION GAP 7 (5-19); BLOOD UREA NITROGEN 4 mg/dL (7-20); CALCIUM 7.6 mg/dL (8.4-10.2); CARBON DIOXIDE 22 mmol/L (22-30); CHLORIDE 107 mmol/L (98-107); GLUCOSE 110 mg/dL (75-110); POTASSIUM 4.3 mmol/L (3.6-5.0)
[2020-01-09] MEDS: POTASSIUM CHLORIDE 10 MEQ TABLET.ER PO SCH ×3 (08:11→16:45)
[2020-01-09] MEDS: POTASSI CL 40 MEQ/NS 1L 1,000 ML IV PRN ×2 (08:28→21:04)
[2020-01-09] MEDS: ENOXAPARIN SODIUM INJ 30 MG/0.3 ML DISP.SYRIN SUBCUT SCH (10:07)
[2020-01-09] MEDS: MAGNESIUM OXIDE 400 MG TABLET PO SCH (10:07)
[2020-01-09] MEDS: PANTOPRAZOLE SODIUM 40 MG VIAL IV SCH (10:07)
[2020-01-09] MEDS: ACETAMINOPHEN SOLN 325 MG/10.15 ML UDCUP PO SCH (10:21)
[2020-01-09] MEDS: ACETAMINOPHEN 325 MG TABLET PO SCH ×2 (13:31→17:39)
--- NOTE | 2020-01-09 16:08 | PDOC PROGRESS REPORT ---
Subjective Progress Note for:: 01/09/20 Subjective:: Pt sitting up in bed awake and alert in NAD. She states that she is feeling better and that she wants to go home. Reason For Visit: PERITONSILLAR ABSCESS,WEAKNESS,RIGHT FACIAL Physical Exam Vital Signs: Temp Pulse Resp BP Pulse Ox 98.9 F 86 16 136/61 H 99 01/09/20 11:04 01/09/20 11:04 01/09/20 11:04 01/09/20 11:04 01/09/20 11:04 Intake & Output 01/08/20 01/09/20 01/10/20 06:59 06:59 06:59 Intake Total 2980 3425 746 Balance 2980 3425 746 Weight 43.8 kg 42.9 kg 42.9 kg Neck exam: PRESENT: other - Neck is firm but less redness of the skin superiorly. There is still some redness of the skin just above the clavicles. Results Laboratory Results: 01/09/20 05:11 01/09/20 05:11 01/09/20 01/09/20 05:11 05:11 WBC 8.8 RBC 3.84 Hgb 12.5 Hct 34.9 L MCV 91 MCH 32.5 MCHC 35.8 RDW 13.1 Plt Count 148 L Sodium 135.7 L Potassium 4.3 Chloride 107 Carbon Dioxide 22 Anion Gap 7 BUN 4 L Creatinine 0.41 L Est GFR ( Amer) > 60 Glucose 110 Calcium 7.6 L Magnesium 2.2 01/03/20 16:19 Blood Blood Culture - Final NO GROWTH IN 5 DAYS 01/03/20 15:05 Blood Blood Culture - Final NO GROWTH IN 5 DAYS 01/03/20 13:01 Troponin I < 0.012 Impressions: Chest X-Ray 01/03/20 12:41 IMPRESSION: Chronic lung changes with no acute cardiopulmonary findings. Soft Tissue Neck CT 01/07/20 00:00 IMPRESSION: Diffuse subcutaneous fluid/edema in the superficial soft tissues of the anterior neck bilaterally from approximately the angle of the mandible superiorly to the sternoclavicular joints inferiorly. This may represent trans- spatial extension of the previously described right tonsillar abscess/infection. A superimposed sialadenitis may also be present given the slightly abnormal appearance of the right submandibular gland. New small bilateral pleural effusions. Assessment & Plan - Diagnosis (1) Submandibular abscess Is this a current diagnosis for this admission?: Yes - Time Anticipated Discharge Disposition: Home, Self Care Anticipated Discharge Timeframe: within 48 hours - Plan Summary Plan Summary: Pt is doing better after I&D T-1. The neck is still firm but that is to be expected on POD #1. Pt's WBC is WNL today. Will continue to follow redness of skin of neck. May start to advance drains tomorrow.
--- NOTE | 2020-01-09 16:10 | PDOC PROGRESS REPORT ---
Subjective Progress Note for:: 01/09/20 Subjective:: She is feeling MUCH better today. Denies fevers/chills. Reason For Visit: PERITONSILLAR ABSCESS,WEAKNESS,RIGHT FACIAL Physical Exam Vital Signs: Temp Pulse Resp BP Pulse Ox 98.9 F 86 16 136/61 H 99 01/09/20 11:04 01/09/20 11:04 01/09/20 11:04 01/09/20 11:04 01/09/20 11:04 Intake & Output 01/08/20 01/09/20 01/10/20 06:59 06:59 06:59 Intake Total 2980 3425 746 Balance 2980 3425 746 Weight 43.8 kg 42.9 kg 42.9 kg Results Laboratory Results: 01/09/20 05:11 01/09/20 05:11 01/09/20 01/09/20 05:11 05:11 WBC 8.8 RBC 3.84 Hgb 12.5 Hct 34.9 L MCV 91 MCH 32.5 MCHC 35.8 RDW 13.1 Plt Count 148 L Sodium 135.7 L Potassium 4.3 Chloride 107 Carbon Dioxide 22 Anion Gap 7 BUN 4 L Creatinine 0.41 L Est GFR ( Amer) > 60 Glucose 110 Calcium 7.6 L Magnesium 2.2 01/03/20 16:19 Blood Blood Culture - Final NO GROWTH IN 5 DAYS 01/03/20 15:05 Blood Blood Culture - Final NO GROWTH IN 5 DAYS 01/03/20 13:01 Troponin I < 0.012 Impressions: Chest X-Ray 01/03/20 12:41 IMPRESSION: Chronic lung changes with no acute cardiopulmonary findings. Soft Tissue Neck CT 01/07/20 00:00 IMPRESSION: Diffuse subcutaneous fluid/edema in the superficial soft tissues of the anterior neck bilaterally from approximately the angle of the mandible superiorly to the sternoclavicular joints inferiorly. This may represent trans- spatial extension of the previously described right tonsillar abscess/infection. A superimposed sialadenitis may also be present given the slightly abnormal appearance of the right submandibular gland. New small bilateral pleural effusions. Assessment and Plan - Diagnosis (1) Sepsis Is this a current diagnosis for this admission?: Yes (2) Dehydration Is this a current diagnosis for this admission?: Yes (3) Sinus tachycardia by electrocardiogram Is this a current diagnosis for this admission?: Yes (4) Neutrophilic leukocytosis Is this a current diagnosis for this admission?: Yes (5) Peritonsillar abscess Is this a current diagnosis for this admission?: Yes (6) Weakness Is this a current diagnosis for this admission?: Yes (7) Hyperthyroidism Is this a current diagnosis for this admission?: Yes - Plan Summary Summary: Ms. AMRITA JUAREZ is an 84 year old female with no pertinent past medical history who presented from home with 2-day history of right jaw pain/swelling and difficulty swallowing. Sepsis due to Submandibular Abscess: In the ED, she had elevated RR, HR and was found to have a neutrophilic leukocytosis (3/[address] neck was initially concerning for peritonsillar abscess. She had no evidence of airway compromise. ENT was consulted, and felt this was due to an odontogenic infection arising from the mandibular molar on the right, and that she needed oral surgery evaluation. Oral surgery consulted and she went to the OR on 01/08/2020 for I&D. - ENT and OMFS are following closely - she still has [address] - no evidence of resp compromise - continue Unasyn IV (completed Clinda x6 days) - completed Decadron 8 mg IV Q8H x4 doses - pain control with Toradol/Tylenol scheduled + Morphine PRN breakthrough pain - aspiration precautions Lactic Acidosis and Sinus Tachycardia - due to Dehydration: in the setting of poor oral intake and above infection. Resolved with IVF hydration. Low TSH: TSH low at 0.03, but free T4 is normal and T3 is actually decreased. This is consistent with illness-induced thyroid lab abnormalities (non-thyroidal illness) and NOT hyperthyroidism, as previously thought. - repeat TSH in 4-6 weeks as outpatient after resolution of acute illness - she does NOT need treatment for hyperthyroidism DVT ppx: Lovenox Code Status: DNR/DNI - Time Time Spent with patient: 35 or more minutes Anticipated Discharge Disposition: Home, Self Care Anticipated Discharge Timeframe: within 48 hours
[2020-01-09 16:43] LABS: APPEARANCE,URINE CLEAR; BILIRUBIN,URINE NEGATIVE (NEGATIVE); COLOR,URINE YELLOW; GLUCOSE, URINE NEGATIVE (NEGATIVE); KETONES,URINE NEGATIVE (NEGATIVE); LEUKOCYTE ESTERASE,URINE NEGATIVE (NEGATIVE); NITRITE,URINE NEGATIVE (NEGATIVE); PROTEIN,URINE NEGATIVE (NEGATIVE); URINE SPECIFIC GRAVITY 1.015; UROBILINOGEN,URINE NEGATIVE mg/dL (<2.0)
[2020-01-10] MEDS: AMPICILLIN SODIUM/SULBACTAM NA 3 GM in NORMAL SALINE 100 ML IV SCH ×5 (00:51→23:02)
[2020-01-10] MEDS: MORPHINE SULFATE 10 MG/ML INJ IV PRN ×3 (04:04→22:48)
[2020-01-10] MEDS: KETOROLAC TROMETHAMINE INJ/PF 30 MG/1 ML SDV IV SCH (05:06)
[2020-01-10 05:54] LABS: ANION GAP 7 (5-19); BLOOD UREA NITROGEN 6 mg/dL (7-20); CARBON DIOXIDE 24 mmol/L (22-30); CHLORIDE 105 mmol/L (98-107); GLUCOSE 118 mg/dL (75-110); POTASSIUM 4.6 mmol/L (3.6-5.0)
[2020-01-10] MEDS: ACETAMINOPHEN 325 MG TABLET PO SCH ×3 (09:58→18:09)
[2020-01-10] MEDS: MAGNESIUM OXIDE 400 MG TABLET PO SCH (09:59)
[2020-01-10] MEDS: POTASSIUM CHLORIDE 10 MEQ TABLET.ER PO SCH ×3 (09:59→18:10)
[2020-01-10] MEDS: PANTOPRAZOLE SODIUM 40 MG VIAL IV SCH (09:59)
[2020-01-10] MEDS: ENOXAPARIN SODIUM INJ 30 MG/0.3 ML DISP.SYRIN SUBCUT SCH (10:00)
--- NOTE | 2020-01-10 12:02 | PDOC PROGRESS REPORT ---
Subjective Progress Note for:: 01/09/20 Reason For Visit: Patient states she feels much better. Physical Exam Vital Signs: Temp Pulse Resp BP Pulse Ox 98.8 F 86 16 132/52 H 97 01/09/20 23:27 01/09/20 23:27 01/09/20 23:27 01/09/20 23:27 01/09/20 23:27 Intake & Output 01/09/20 01/10/20 01/11/20 06:59 06:59 06:59 Intake Total 3425 1946 10 Balance 3425 1946 10 Weight 42.9 kg 43.4 kg Exam: Neck: Jai drain in place on the right side along with a dressing. The dressing is somewhat saturated from drainage. The previously noted brawny edema extending along the anterior neck has decreased in area and looks much better. Oral cavity oropharynx: Decreased edema and erythema intraorally. General: Overall patient appears much better than previous exam. Results Laboratory Results: 01/09/20 05:11 01/10/20 05:00 01/09/20 01/10/20 16:10 05:00 Sodium 136.3 L Potassium 4.6 Chloride 105 Carbon Dioxide 24 Anion Gap 7 BUN 6 L Creatinine 0.44 L Est GFR ( Amer) > 60 Glucose 118 H Calcium 8.0 L Magnesium 2.2 Urine Color YELLOW Urine Appearance CLEAR Urine pH 7.0 Ur Specific [place] 1.015 Urine Protein NEGATIVE Urine Glucose (UA) NEGATIVE Urine Ketones NEGATIVE Urine Blood NEGATIVE Urine Nitrite NEGATIVE Ur Leukocyte Esterase NEGATIVE Urine WBC (Auto) 1 Urine RBC (Auto) 3 01/03/20 13:01 Troponin I < 0.012 Impressions: Chest X-Ray 01/03/20 12:41 IMPRESSION: Chronic lung changes with no acute cardiopulmonary findings. Soft Tissue Neck CT 01/07/20 00:00 IMPRESSION: Diffuse subcutaneous fluid/edema in the superficial soft tissues of the anterior neck bilaterally from approximately the angle of the mandible superiorly to the sternoclavicular joints inferiorly. This may represent trans- spatial extension of the previously described right tonsillar abscess/infection. A superimposed sialadenitis may also be present given the slightly abnormal appearance of the right submandibular gland. New small bilateral pleural effusions. Assessment & Plan - Diagnosis (1) Odontogenic infection of jaw Is this a current diagnosis for this admission?: Yes Plan: 1. Continue with plan per oral/maxillofacial surgery. 2. Otolaryngology is standing by if assistance is needed. - Time Time Spent with patient: Less than 15 minutes
[2020-01-10] MEDS: POTASSI CL 40 MEQ/NS 1L 1,000 ML IV PRN (12:59)
--- NOTE | 2020-01-10 18:20 | PDOC PROGRESS REPORT ---
Subjective Progress Note for:: 01/10/20 Subjective:: She is feeling much improved today. NAEO, afebrile. Pain improving. She continues to have purulent output from surgical drains. Reason For Visit: PERITONSILLAR ABSCESS,WEAKNESS,RIGHT FACIAL Physical Exam Vital Signs: Temp Pulse Resp BP Pulse Ox 97.8 F 90 20 133/62 H 100 01/10/20 15:40 01/10/20 15:40 01/10/20 15:40 01/10/20 15:40 01/10/20 15:40 Intake & Output 01/09/20 01/10/20 01/11/20 06:59 06:59 06:59 Intake Total 3425 1945 1929 Balance 3425 1945 1929 Weight 42.9 kg 43.4 kg General appearance: PRESENT: no acute distress Head exam: PRESENT: atraumatic, other - R jaw/neck with [address], draining purulent material Neck exam: ABSENT: JVD Respiratory exam: PRESENT: clear to auscultation cristian Cardiovascular exam: PRESENT: RRR GI/Abdominal exam: PRESENT: normal bowel sounds, soft Neurological exam: PRESENT: alert, awake, oriented to person, oriented to place, oriented to situation Psychiatric exam: PRESENT: appropriate affect Skin exam: PRESENT: warm. ABSENT: rash Results Laboratory Results: 01/09/20 05:11 01/10/20 05:00 01/10/20 05:00 Sodium 136.3 L Potassium 4.6 Chloride 105 Carbon Dioxide 24 Anion Gap 7 BUN 6 L Creatinine 0.44 L Est GFR ( Amer) > 60 Glucose 118 H Calcium 8.0 L Magnesium 2.2 01/03/20 13:01 Troponin I < 0.012 Impressions: Chest X-Ray 01/03/20 12:41 IMPRESSION: Chronic lung changes with no acute cardiopulmonary findings. Soft Tissue Neck CT 01/07/20 00:00 IMPRESSION: Diffuse subcutaneous fluid/edema in the superficial soft tissues of the anterior neck bilaterally from approximately the angle of the mandible superiorly to the sternoclavicular joints inferiorly. This may represent trans- spatial extension of the previously described right tonsillar abscess/infection. A superimposed sialadenitis may also be present given the slightly abnormal appearance of the right submandibular gland. New small bilateral pleural effusions. Assessment and Plan - Diagnosis (1) Sepsis Qualifiers: Sepsis type: sepsis due to unspecified organism Severe sepsis shock status: without septic shock Is this a current diagnosis for this admission?: Yes (2) Dehydration Is this a current diagnosis for this admission?: Yes (3) Sinus tachycardia by electrocardiogram Is this a current diagnosis for this admission?: Yes (4) Neutrophilic leukocytosis Is this a current diagnosis for this admission?: Yes (5) Peritonsillar abscess Is this a current diagnosis for this admission?: Yes (6) Weakness Is this a current diagnosis for this admission?: Yes (7) Hyperthyroidism Is this a current diagnosis for this admission?: Yes - Plan Summary Summary: Ms. AMIRTA JUAREZ is an 84 year old female with no pertinent past medical history who presented from home with 2-day history of right jaw pain/swelling and difficulty swallowing. Sepsis due to Submandibular Abscess: In the ED, she had elevated RR, HR and was found to have a neutrophilic leukocytosis (3/4 SIRS). CT neck was initially concerning for peritonsillar abscess. She had no evidence of airway compromise. ENT was consulted, and felt this was due to an odontogenic infection arising from the mandibular molar on the right, and that she needed oral surgery evaluation. Oral surgery consulted and she went to the OR on 01/08/2020 for I&D. - ENT and OMFS are following closely - she still has [address] - no evidence of resp compromise - continue Unasyn IV (completed Clinda x6 days) - completed Decadron 8 mg IV Q8H x4 doses - pain control with Tylenol scheduled + Morphine PRN breakthrough pain - aspiration precautions Lactic Acidosis and Sinus Tachycardia - due to Dehydration: in the setting of poor oral intake and above infection. Resolved with IVF hydration. Low TSH: TSH low at 0.03, but free T4 is normal and T3 is actually decreased. This is consistent with illness-induced thyroid lab abnormalities (non-thyroidal illness) and NOT hyperthyroidism, as previously thought. - repeat TSH in 4-6 weeks as outpatient after resolution of acute illness - she does NOT need treatment for hyperthyroidism DVT ppx: Lovenox Code Status: DNR/DNI - Time Time Spent with patient: 35 or more minutes Anticipated Discharge Disposition: Home, Self Care Anticipated Discharge Timeframe: within 24 hours
[2020-01-11] MEDS: POTASSI CL 40 MEQ/NS 1L 1,000 ML IV PRN (03:00)
[2020-01-11] MEDS: MORPHINE SULFATE 10 MG/ML INJ IV PRN ×2 (06:14→07:48)
[2020-01-11] MEDS: POTASSIUM CHLORIDE 10 MEQ TABLET.ER PO SCH ×2 (07:31→11:34)
[2020-01-11] MEDS: PANTOPRAZOLE SODIUM 40 MG VIAL IV SCH (09:19)
[2020-01-11] MEDS: MAGNESIUM OXIDE 400 MG TABLET PO SCH (09:20)
[2020-01-11] MEDS: ACETAMINOPHEN 325 MG TABLET PO SCH (09:20)
[2020-01-11] MEDS: ENOXAPARIN SODIUM INJ 30 MG/0.3 ML DISP.SYRIN SUBCUT SCH (09:20)
[2020-01-11 12:11] VITALS: BP 140/63
--- NOTE | 2020-01-11 14:20 | PDOC DISCHARGE SUMMARY ---
Impression - Admit/DC Date/PCP Admission Date/Primary Care Provider: 01/03/20 18:12 Discharge Date: 01/11/20 - Discharge Diagnosis (1) Sepsis Is this a current diagnosis for this admission?: Yes (2) Dehydration Is this a current diagnosis for this admission?: Yes (3) Sinus tachycardia by electrocardiogram Is this a current diagnosis for this admission?: Yes (4) Neutrophilic leukocytosis Is this a current diagnosis for this admission?: Yes (5) Peritonsillar abscess Is this a current diagnosis for this admission?: Yes (6) Weakness Is this a current diagnosis for this admission?: Yes (7) Hyperthyroidism Is this a current diagnosis for this admission?: Yes - Assessment Summary: Ms. AMRITA JUAREZ is an 84 year old female with no pertinent past medical history who presented from home with 2-day history of right jaw pain/swelling and difficulty swallowing. Sepsis due to Submandibular Abscess: In the ED, she had elevated RR, HR and was found to have a neutrophilic leukocytosis (3/[address] neck was initially concerning for peritonsillar abscess. She had no evidence of airway compromise. ENT was consulted, and felt this was due to an odontogenic infection arising from the mandibular molar on the right, and that she needed oral surgery evaluation. Oral surgery was consulted and she went to the OR on 01/08/2020 for I&D. She was also treated with IV antibiotics: Unasyn for 8 days and Clindamycin for 6 days. Her pain was well controlled with Tylenol and she was tolerating a regular diet by the day of discharge. She has same-day outpatient follow up arranged with oral surgery this very afternoon. Lactic Acidosis and Sinus Tachycardia - due to Dehydration: in the setting of poor oral intake and above infection. Resolved with IVF hydration. Low TSH: TSH low at 0.03, but free T4 is normal and T3 is actually decreased. This is consistent with illness-induced thyroid lab abnormalities (non-thyroidal illness) and NOT hyperthyroidism. Recommend repeat TSH in 4-6 weeks as outpatient after resolution of acute illness. She does not need treatment for hyperthyroidism. - Additional Information Resuscitation Status: Do Not Resuscitate Discharge Diet: Regular Discharge Activity: Activity As Tolerated Referrals: RYAN COLES DDS [ACTIVE STAFF] - 01/11/20 3:15 pm Home Medications: No Home Medications 03/29/13 History of Present Illiness History of Present Illness: AMRITA JUAREZ is an 84 year old female with no pertinent past medical history who presents from home with 2-day history of right jaw pain/swelling and difficulty swallowing. States that she has not been able to eat or drink anything for the last 2 days. She has never had anything like this before. She denies fevers / chills / rigors. She is an otherwise healthy woman who, prior to 2 days ago, was in her usual state of health. She does not take any medica tions and she avoid seeing doctors. She denies trauma to the area or recent dental procedures. Physical Exam Vital Signs: Temp Pulse Resp BP Pulse Ox 97.7 F 93 16 140/63 H 99 01/11/20 11:15 01/11/20 11:15 01/11/20 11:15 01/11/20 11:15 01/11/20 11:15 Intake & Output 01/10/20 01/11/20 01/12/20 06:59 06:59 06:59 Intake Total 1945 3410 720 Balance 1945 3410 720 Weight 43.4 kg 43.4 kg Results Laboratory Results: WBC 8.8 10^3/uL (4.0-10.5) 01/09/20 05:11 RBC 3.84 10^6/uL (3.72-5.28) 01/09/20 05:11 Hgb 12.5 g/dL (12.0-15.5) 01/09/20 05:11 Hct 34.9 % (36.0-47.0) L 01/09/20 05:11 MCV 91 fl (80-97) 01/09/20 05:11 MCH 32.5 pg (27.0-33.4) 01/09/20 05:11 MCHC 35.8 g/dL (32.0-36.0) 01/09/20 05:11 RDW 13.1 % (11.5-14.0) 01/09/20 05:11 Plt Count 148 10^3/uL (150-450) L 01/09/20 05:11 Lymph % (Auto) 6.1 % (13-45) L 01/08/20 04:04 [place] % (Auto) 2.5 % (3-13) L 01/08/20 04:04 Eos % (Auto) 0.2 % (0-6) 01/08/20 04:04 Baso % (Auto) 0.2 % (0-2) 01/08/20 04:04 Absolute Neuts (auto) 13.0 10^3/uL (1.7-8.2) H 01/08/20 04:04 Absolute Lymphs (auto) 0.9 10^3/uL (0.5-4.7) 01/08/20 04:04 Absolute Monos (auto) 0.4 10^3/uL (0.1-1.4) 01/08/20 04:04 Absolute Eos (auto) 0.0 10^3/uL (0.0-0.6) 01/08/20 04:04 Absolute Basos (auto) 0.0 10^3/uL (0.0-0.2) 01/08/20 04:04 Total Counted 100 01/03/20 13:01 Seg Neutrophils % 91.0 % (42-78) H 01/08/20 04:04 Seg Neuts % (Manual) 88 % (42-78) H 01/03/20 13:01 Band Neutrophils % 8 % (3-5) H 01/03/20 13:01 Lymphocytes % (Manual) 1 % (13-45) L 01/03/20 13:01 Monocytes % (Manual) 3 % (3-13) 01/03/20 13:01 Eosinophils % (Manual) 0 % (0-6) 01/03/20 13:01 Basophils % (Manual) 0 % (0-2) 01/03/20 13:01 Abs Neuts (Manual) 14.4 10^3/uL (1.7-8.2) H 01/03/20 13:01 Abs Lymphs (Manual) 0.2 10^3/uL (0.5-4.7) L 01/03/20 13:01 Abs Monocytes (Manual) 0.5 10^3/uL (0.1-1.4) 01/03/20 13:01 Absolute Eos (Manual) 0.0 10^3/uL (0.0-0.6) 01/03/20 13:01 Abs Basophils (Manual) 0.0 10^3/uL (0.0-0.2) 01/03/20 13:01 Clumped Platelets PRESENT 01/03/20 13:01 Platelet Comment DECREASED 01/03/20 13:01 RBC Morph Comment NORMO-CYTIC/CHROMIC 01/03/20 13:01 Sodium 136.3 mmol/L (137-145) L 01/10/20 05:00 Potassium 4.6 mmol/L (3.6-5.0) 01/10/20 05:00 Chloride 105 mmol/L (98-107) 01/10/20 05:00 Carbon Dioxide 24 mmol/L (22-30) 01/10/20 05:00 Anion Gap 7 (5-19) 01/10/20 05:00 BUN 6 mg/dL (7-20) L 01/10/20 05:00 Creatinine 0.44 mg/dL (0.52-1.25) L 01/10/20 05:00 Est GFR ( Amer) > 60 (>60) 01/10/20 05:00 Est GFR (MDRD) Non-Af > 60 (>60) 01/10/20 05:00 Glucose 118 mg/dL (75-110) H 01/10/20 05:00 Lactic Acid 2.7 mmol/L (0.7-2.1) H 01/03/20 13:01 Calcium 8.0 mg/dL (8.4-10.2) L 01/10/20 05:00 Magnesium 2.2 mg/dL (1.6-2.3) 01/10/20 05:00 Total Bilirubin 1.8 mg/dL (0.2-1.3) H 01/03/20 13:01 Direct Bilirubin 0.7 mg/dL (0.0-0.4) H 01/03/20 13:01 Neonat Total Bilirubin Not Reportable 01/03/20 13:01 Neonat Direct Bilirubin Not Reportable 01/03/20 13:01 Neonat Indirect Bili Not Reportable 01/03/20 13:01 AST 28 U/L (14-36) 01/03/20 13:01 ALT 16 U/L (<35) 01/03/20 13:01 Alkaline Phosphatase 135 U/L (38-126) H 01/03/20 13:01 Troponin I < 0.012 ng/mL 01/03/20 13:01 C-Reactive Protein 290.2 mg/L (<10.0) H 01/03/20 13:01 Total Protein 6.9 g/dL (6.3-8.2) 01/03/20 13:01 Albumin 3.9 g/dL (3.5-5.0) 01/03/20 13:01 TSH 0.03 uIU/mL (0.47-4.68) L 01/03/20 13:01 Free T4 1.80 ng/dL (0.78-2.19) 01/03/20 19:11 Free T3 pg/mL 1.63 pg/mL (2.77-5.27) L 01/03/20 19:11 Urine Color YELLOW 01/09/20 16:10 Urine Appearance CLEAR 01/09/20 16:10 Urine pH 7.0 (5.0-9.0) 01/09/20 16:10 Ur Specific [place] 1.015 01/09/20 16:10 Urine Protein NEGATIVE mg/dL (NEGATIVE) 01/09/20 16:10 Urine Glucose (UA) NEGATIVE mg/dL (NEGATIVE) 01/09/20 16:10 Urine Ketones NEGATIVE mg/dL (NEGATIVE) 01/09/20 16:10 Urine Blood NEGATIVE (NEGATIVE) 01/09/20 16:10 Urine Nitrite NEGATIVE (NEGATIVE) 01/09/20 16:10 Urine Bilirubin NEGATIVE (NEGATIVE) 01/09/20 16:10 Urine Urobilinogen NEGATIVE mg/dL (<2.0) 01/09/20 16:10 Ur Leukocyte Esterase NEGATIVE (NEGATIVE) 01/09/20 16:10 Urine WBC (Auto) 1 /HPF 01/09/20 16:10 Urine RBC (Auto) 3 /HPF 01/09/20 16:10 U Hyaline Cast (Auto) 1 /LPF 01/09/20 16:10 Urine Bacteria (Auto) TRACE /HPF 01/09/20 16:10 Squamous Epi Cells Auto 2 /HPF 01/09/20 16:10 Urine Mucus (Auto) RARE /LPF 01/09/20 16:10 Urine Ascorbic Acid NEGATIVE (NEGATIVE) 01/09/20 16:10 COVID-19 Source NASOPHARYNGEAL 01/06/20 11:00 COVID-19 (SHAUNA) NOT DETECTED 01/06/20 11:00 01/03/20 13:01 Troponin I < 0.012 Impressions: Chest X-Ray 01/03/20 12:41 IMPRESSION: Chronic lung changes with no acute cardiopulmonary findings. Soft Tissue Neck CT 01/03/20 12:41 IMPRESSION: Right peritonsillar abscess or necrotic mass. ENT consultation is recommended. Soft Tissue Neck CT 01/07/20 00:00 IMPRESSION: Diffuse subcutaneous fluid/edema in the superficial soft tissues of the anterior neck bilaterally from approximately the angle of the mandible superiorly to the sternoclavicular joints inferiorly. This may represent trans-spatial extension of the previously described right tonsillar abscess/infection. A superimposed sialadenitis may also be present given the slightly abnormal appearance of the right submandibular gland. New small bilateral pleural effusions. Stroke Is this a Stroke Patient?: No Acute Heart Failure Is this a Heart Failure Patient?: No
== END 2020-01-11 12:32 | disposition home or self-care (01) | DRG 872 ==
LOC: ER 12:28 → EH 18:12 → 4N 19:55
PROVIDERS: ADMIT Hospitalist; ATTEND Hospitalist
PROC: 0J910ZX Drainage of Face Subcutaneous Tissue and Fascia, Open Approach, Diagnostic (ICD-10-PCS; 2020-01-08)
PROC: 0C940ZX Drainage of Buccal Mucosa, Open Approach, Diagnostic (ICD-10-PCS; principal; 2020-01-08 13:30)
DX: A41.9 Sepsis, unspecified organism (principal); J36 Peritonsillar abscess; K12.2 Cellulitis and abscess of mouth; E86.0 Dehydration; R00.0 Tachycardia, unspecified; E05.90 Thyrotoxicosis, unspecified without thyrotoxic crisis or storm; Z03.818 Encounter for observation for suspected exposure to other biological agents ruled out; Z66 Do not resuscitate
CPT/HCPCS: 00170; 36415; 70491; 71046; 80048; 80053; 81001; 83605; 83735; 84439; 84443; 84481; 84484; 85025; 85027; 86140; 87040; 87070; 87075; 87077; 87205; 87635; 93005; 93010; 96361; 96365; 96367; 96375; 99140; 99285; C9113; C9803; J0295; J0330; J0696; J1100; J1650; J1885; J1956; J2185; J2250; J2270; J2370; J2405; J2704; J3010; J3480; J3490; J7030; J7050